=== PATIENT | male | born 1950 | race Caucasian/White ===

== ENCOUNTER → 2016-05-09 | Outpatient (REF) | payer BC ==
[2016-05-09 11:32] LABS: MEAN CORPUSCULAR HEMOGLOBIN 33.1 pg (27.0-33.0); MEAN CORPUSCULAR HGB CONC 35.2 g/dl (32.0-36.5); MEAN CORPUSCULAR VOLUME 93.9 fl (80.0-96.0); RED CELL DISTRIBUTION WIDTH 12.9 % (11.5-14.5); WHITE BLOOD COUNT 7.4 K/mm3 (4.0-10.0)
[2016-05-09 11:39] LABS: ALBUMIN 3.8 GM/DL (3.2-5.2); ALBUMIN/GLOBULIN RATIO 0.93 (1.00-1.93); ALKALINE PHOSPHATASE 72 U/L (45-117); ALT/SGPT 18 U/L (12-78); ANION GAP 6 MEQ/L (8-16); AST/SGOT 13 U/L (15-37); BILIRUBIN,TOTAL 0.4 MG/DL (0.2-1.0); BLOOD UREA NITROGEN 17 MG/DL (7-18); CALCIUM LEVEL 8.7 MG/DL (8.8-10.2); CARBON DIOXIDE LEVEL 32 MEQ/L (21-32); CHLORIDE LEVEL 102 MEQ/L (98-107); CHOLESTEROL LEVEL 120 MG/DL (<200); CREATININE FOR GFR 0.86 MG/DL (0.70-1.30); GLOMERULAR FILTRATION RATE > 60.0 (>49); GLUCOSE, FASTING 97 MG/DL (80-110); POTASSIUM SERUM 3.9 MEQ/L (3.5-5.1); SODIUM LEVEL 140 MEQ/L (136-145); TOTAL PROTEIN 7.9 GM/DL (6.4-8.2); TRIGLYCERIDES LEVEL 65 MG/DL (<150)
== END ==
LOC: M SFHCPLAZ 08:14
PROVIDERS: ATTEND Internal Medicine
DX: G25.81 Restless legs syndrome (principal); I10 Essential (primary) hypertension

== ENCOUNTER 2017-05-14 10:39 | Inpatient (IN) | payer MEDICARE, BC ==
[2017-05-14] MEDS: ASPIRIN 81 MG ENTERIC TAB PO (09:00)
[2017-05-14] MEDS: NS 1,000 ML IV (11:35)
[2017-05-14] MEDS: ACETAMINOPHEN 325 MG TAB PO (11:35)
[2017-05-14] MEDS: IPRATROPIUM 0.5MG/ALBUTEROL 2.5MG INH SOL UD 3ML (DUONEB)(J7620) NEB ×2 (11:36→21:51)
[2017-05-14] MEDS: ALBUTEROL SULFATE 2.5 MG/0.5 ML INH NEB SOLN INH (11:36)
[2017-05-14 11:43] LABS: ABG BASE EXCESS 0.5 (-2.0-2.0); ABG O2 SATURATION 93.8 % (95.0-99.0); ABG PARTIAL PRESSURE CO2 28.1 mmHg (35.0-45.0); ABG PARTIAL PRESSURE O2 67.2 mmHg (75.0-100.0); ABG STANDARD HCO3 24.9 MEQ/L (22.0-26.0); ABG TOTAL CO2 23.8 MEQ/L (23.0-31.0)
[2017-05-14 11:44] LABS: HEMATOCRIT 21.6 % (42.0-52.0); HEMOGLOBIN 7.4 g/dl (14.0-18.0); MEAN CORPUSCULAR HEMOGLOBIN 35.9 pg (27.0-33.0); MEAN CORPUSCULAR HGB CONC 34.3 g/dl (32.0-36.5); MEAN CORPUSCULAR VOLUME 104.9 fl (80.0-96.0); PLATELET COUNT, AUTOMATED 117 10^3/uL (150-450); RED BLOOD COUNT 2.06 10^6/uL (4.30-6.10); RED CELL DISTRIBUTION WIDTH 14.1 % (11.5-14.5); WHITE BLOOD COUNT 5.9 10^3/uL (4.0-10.0)
[2017-05-14 12:04] LABS: ADD MANUAL DIFFER YES; DIFF SLIDE NUMBER 105; POSITIVE MORPH POS FLAG
[2017-05-14 12:08] LABS: LACTIC ACID SEPSIS PROTOCOL 1.2 MMOL/L (0.4-2.0)
[2017-05-14 12:15] LABS: ALBUMIN 3.2 GM/DL (3.2-5.2); ALBUMIN/GLOBULIN RATIO 0.46 (1.00-1.93); ALKALINE PHOSPHATASE 49 U/L (45-117); ALT/SGPT 8 U/L (12-78); ANION GAP 7 MEQ/L (8-16); AST/SGOT 25 U/L (7-37); BILIRUBIN,TOTAL 0.2 MG/DL (0.2-1.0); BLOOD UREA NITROGEN 27 MG/DL (7-18); CALCIUM LEVEL 8.8 MG/DL (8.8-10.2); CARBON DIOXIDE LEVEL 29 MEQ/L (21-32); CHLORIDE LEVEL 100 MEQ/L (98-107); CPK CREATINE PHOSPHOKINASE 107 U/L (39-308); CREATININE FOR GFR 1.09 MG/DL (0.70-1.30); GLOMERULAR FILTRATION RATE > 60.0 (>49); GLUCOSE, FASTING 105 MG/DL (80-110); POTASSIUM SERUM 3.3 MEQ/L (3.5-5.1); SODIUM LEVEL 136 MEQ/L (136-145); TOTAL PROTEIN 10.1 GM/DL (6.4-8.2); TROPONIN I < 0.02 NG/ML (< 0.10)
[2017-05-14 12:20] LABS: BILIRUBIN,DIRECT < 0.1 MG/DL (0.0-0.2); MB/CK RELATIVE INDEX 0.93 (< OR =4)
[2017-05-14 12:38] LABS: ATYPICAL LYMPH 2 % (0-5); BANDS 1 % (< 11); LYMPHOCYTES 17 % (16-52); METAMYELOCYTES 2 % (0-0); MONOCYTES 11 % (0-8); MYELOCYTES 1 % (0-0); NEUTROPHILS 66 % (35-75)
[2017-05-14 12:39] LABS: PLATELET ESTIMATE DECREASED (NORMAL)
[2017-05-14] MEDS ORDERED: ISOVUE-370 76% 100ML VIAL (Q9967) As Ordered (13:03)
[2017-05-14 14:00] LABS: APPEARANCE, URINE HAZY (CLEAR); BACTERIA, URINE AUTO NEGATIVE (NEGATIVE); BILIRUBIN, URINE AUTO NEGATIVE (NEGATIVE); BLOOD, URINE BLOOD 2+ (NEGATIVE); CALCIUM OXALATE CRYSTALS LARGE; COLOR, URINE YELLOW (YELLOW); GLUCOSE, URINE (UA) AUTO NEGATIVE (NEGATIVE); KETONE, URINE AUTO TRACE mg/dL (NEGATIVE); LEUKOCYTE ESTERASE, URINE AUTO NEGATIVE (NEGATIVE); MUCUS, URINE SMALL (NEGATIVE); NITRITE, URINE AUTO NEGATIVE (NEGATIVE); PROTEIN, URINE AUTO 2+ mg/dL (NEGATIVE); RBC, URINE AUTO 64 /HPF (0-3); SQUAMOUS EPITHELIAL CELL UR AU 0 /HPF (0-6); UROBILINOGEN, URINE AUTO 0.2 mg/dL (0.0-2.0); WBC, URINE AUTO 8 /HPF (0-3)
[2017-05-14] MEDS: CEFTRIAXONE SOD 1 GM in APPROPRIATE DILUENT 1 EA IV (14:38)
[2017-05-14] MEDS: POTASSIUM CHLORIDE 10 MEQ SR TABLET PO (14:51)
[2017-05-14] MEDS ORDERED: IPRATROPIUM 0.5MG/ALBUTEROL 2.5MG INH SOL UD 3ML (DUONEB)(J7620) NEB (15:30)
[2017-05-14 15:38] LABS: RETIC HEMOGLOBIN EQUIVALENT 38.3 pg (24-36); RETICULOCYTE # 24.2 10^9/L (17-77); RETICULOCYTE % 1.2 % (0.5-1.5)
[2017-05-14 15:40] LABS: REASON FOR REVIEW COMPREHENSIVE REVIEW; SLIDE REVIEW Report; SOURCE PERIPHERAL SMEAR
[2017-05-14] MEDS: AZITHROMYCIN INJ 500 MG, VIAL MATE ADAPTER 1 EACH in D5W 250 ML IV (15:49)
[2017-05-14 15:56] LABS: MAGNESIUM LEVEL 1.8 MG/DL (1.8-2.4)
[2017-05-14 16:10] LABS: ERYTHROCYTE SEDIMENTATION RATE 126 mm/hr (0-20)
[2017-05-14 16:12] LABS: C REACTIVE PROTEIN QUANTITATIV 0.84 MG/DL (0.00-0.30)
[2017-05-14] MEDS: PERCOCET 5MG/325MG TAB PO ×2 (16:15→23:00)
[2017-05-14 16:16] LABS: PSA SCREENING 0.57 NG/ML (< 4.0); TOTAL PROTEIN 9.6 GM/DL (6.4-8.2)
[2017-05-14 16:17] LABS: FERRITIN 673 NG/ML (26-388); IRON (FE) 34 UG/DL (65-175); PERCENT SATURATION 12.2 % (19.7-50.0); TOTAL IRON BINDING CAPACITY 279 UG/DL (250-450)
[2017-05-14] MEDS: KCL 20MEQ in NS 1000ML 1,000 ML IV (17:07)
[2017-05-14] MEDS: LACTOBACILLUS ACIDOPHILUS CAP (BACID) PO ×2 (17:07→23:00)
[2017-05-14] MEDS: SINEMET 25-100 MG TAB PO ×2 (17:07→23:03)
[2017-05-14] MEDS: ROPINIROLE 6 MG PO (21:00)
[2017-05-14 21:35] LABS: AMMONIA 32 uMOL/L (<32)
[2017-05-14 21:40] LABS: CPK CREATINE PHOSPHOKINASE 145 U/L (39-308); MB/CK RELATIVE INDEX 0.68 (< OR =4); TROPONIN I 0.02 NG/ML (< 0.10)
[2017-05-14 22:43] LABS: IMMEDIATE SPIN CROSSMATCH 1 2
[2017-05-14] MEDS: traZODone 50 MG TAB PO (22:58)
[2017-05-14] MEDS: PANTOPRAZOLE 40MG INJ (PROTONIX) (C9113) IV (22:58)
[2017-05-14] MEDS: SENOKOT S TAB PO (22:59)
[2017-05-14] MEDS: guaiFENesin ER 600 MG TAB PO (22:59)
[2017-05-14] MEDS: MIRALAX *UNIT DOSE* 17GM PACKET PO (23:00)
[2017-05-14] MEDS: SINEMET**CR** 25/100 TABCR PO (23:01)
[2017-05-14] MEDS: BENZONATATE 100 MG CAP PO (23:01)
[2017-05-14] MEDS: SELEGILINE 5 MG PO (23:04)
[2017-05-14] MEDS: ACETAMINOPHEN TAB 650MG DOSE (2X325MG) PO (23:55)
[2017-05-15 01:08] LABS: HEMATOCRIT 21.6 % (42.0-52.0); HEMOGLOBIN 7.3 g/dl (14.0-18.0)
[2017-05-15] MEDS: IPRATROPIUM 0.5MG/ALBUTEROL 2.5MG INH SOL UD 3ML (DUONEB)(J7620) NEB ×4 (02:00→20:00)
[2017-05-15] MEDS: KCL 20MEQ in NS 1000ML 1,000 ML IV ×3 (02:50→23:15)
[2017-05-15 03:16] LABS: IMMEDIATE SPIN CROSSMATCH 1 1
[2017-05-15] MEDS: PERCOCET 5MG/325MG TAB PO ×3 (04:01→16:16)
[2017-05-15 07:54] LABS: HEMATOCRIT 25.3 % (42.0-52.0); HEMOGLOBIN 8.5 g/dl (14.0-18.0); MEAN CORPUSCULAR HGB CONC 33.6 g/dl (32.0-36.5); MEAN CORPUSCULAR VOLUME 101.2 fl (80.0-96.0); PLATELET COUNT, AUTOMATED 101 10^3/uL (150-450); RED CELL DISTRIBUTION WIDTH 17.2 % (11.5-14.5); WHITE BLOOD COUNT 4.3 10^3/uL (4.0-10.0)
[2017-05-15] MEDS: PANTOPRAZOLE 40MG INJ (PROTONIX) (C9113) IV ×2 (08:00→22:45)
[2017-05-15] MEDS: MIRALAX *UNIT DOSE* 17GM PACKET PO ×2 (08:00→22:45)
[2017-05-15] MEDS: LACTOBACILLUS ACIDOPHILUS CAP (BACID) PO ×3 (08:00→22:44)
[2017-05-15] MEDS: guaiFENesin ER 600 MG TAB PO ×2 (08:01→22:44)
[2017-05-15] MEDS: SENOKOT S TAB PO ×2 (08:01→22:45)
[2017-05-15] MEDS: BENZONATATE 100 MG CAP PO ×5 (08:01→23:15)
[2017-05-15] MEDS: SINEMET 25-100 MG TAB PO ×4 (08:01→22:45)
[2017-05-15] MEDS: ASPIRIN 81 MG ENTERIC TAB PO (08:01)
[2017-05-15] MEDS: ACETAMINOPHEN TAB 650MG DOSE (2X325MG) PO ×2 (08:09→21:26)
[2017-05-15 08:21] LABS: ALBUMIN 2.9 GM/DL (3.2-5.2); ALBUMIN/GLOBULIN RATIO 0.45 (1.00-1.93); ALKALINE PHOSPHATASE 58 U/L (45-117); ALT/SGPT 18 U/L (12-78); ANION GAP 6 MEQ/L (8-16); AST/SGOT 77 U/L (7-37); BILIRUBIN,TOTAL 0.4 MG/DL (0.2-1.0); BLOOD UREA NITROGEN 29 MG/DL (7-18); CALCIUM LEVEL 8.4 MG/DL (8.8-10.2); CARBON DIOXIDE LEVEL 27 MEQ/L (21-32); CHLORIDE LEVEL 104 MEQ/L (98-107); CREATININE FOR GFR 0.93 MG/DL (0.70-1.30); GLOMERULAR FILTRATION RATE > 60.0 (>49); GLUCOSE, FASTING 89 MG/DL (80-110); POTASSIUM SERUM 3.8 MEQ/L (3.5-5.1); SODIUM LEVEL 137 MEQ/L (136-145); TOTAL PROTEIN 9.3 GM/DL (6.4-8.2)
[2017-05-15] MEDS: OSELTAMIVIR PHOSPHATE 75 MG CAP (TAMIFLU) PO ×2 (10:41→22:44)
[2017-05-15 11:22] LABS: ALBUMIN 3.68 GM/DL (3.29-5.55); ALBUMIN % 38.3 % (55.8-66.1); ALPHA-1-GLOBULIN % 4.2 % (2.9-4.9); ALPHA-2-GLOBULINS 0.57 GM/DL (0.42-0.99); ALPHA-2-GLOBULINS % 5.9 % (7.1-11.8); BETA-1-GLOBULINS 0.26 GM/DL (0.28-0.60); BETA-1-GLOBULINS % 2.7 % (4.7-7.2); BETA-2-GLOBULINS 0.36 GM/DL (0.19-0.55); BETA-2-GLOBULINS % 3.8 % (3.2-6.5); GAMMA GLOBULIN % 45.1 % (11.1-18.8); GAMMA GLOBULINS 4.33 GM/DL (0.65-1.58)
[2017-05-15 11:27] LABS: IMMUNOTYPING SERUM IGG ABNORMAL (NORMAL)
[2017-05-15 11:28] LABS: IMMUNOTYPING SERUM LAMBDA ABNORMAL (NORMAL)
[2017-05-15 11:45] LABS: VITAMIN B12 LEVEL 191 PG/ML (247-911)
[2017-05-15 11:47] LABS: FOLATE 15.2 NG/ML (>5.4)
[2017-05-15 15:17] LABS: HEMATOCRIT 25.2 % (42.0-52.0); HEMOGLOBIN 8.6 g/dl (14.0-18.0)
[2017-05-15 15:52] LABS: FERRITIN 1297 NG/ML (26-388); IRON (FE) 39 UG/DL (65-175); PERCENT SATURATION 15.9 % (19.7-50.0); TOTAL IRON BINDING CAPACITY 245 UG/DL (250-450)
[2017-05-15 15:56] LABS: VITAMIN B12 LEVEL 195 PG/ML (247-911)
[2017-05-15] MEDS: CEFTRIAXONE SOD 2 GM in APPROPRIATE DILUENT 1 EA IV (16:13)
[2017-05-15] MEDS: CHLORASEPTIC SPRAY MT (16:17)
[2017-05-15] MEDS: AZITHROMYCIN INJ 500 MG, VIAL MATE ADAPTER 1 EACH in D5W 250 ML IV (17:45)
[2017-05-15] MEDS: BACTRIM 160MG/800MG DS TAB PO (18:44)
[2017-05-15] MEDS: ACYCLOVIR 200 MG CAPSULE PO ×2 (18:44→23:15)
[2017-05-15] MEDS: LORazepam 2 MG/ML VIAL (J2060) IV ×3 (18:58→20:59)
[2017-05-15] MEDS ORDERED: dexameTHASONE 4 MG/ML 1ML VIAL (J1100) As Ordered (22:26)
[2017-05-15] MEDS: ROPINIROLE 6 MG PO (22:43)
[2017-05-15] MEDS: traZODone 50 MG TAB PO (22:44)
[2017-05-15] MEDS: SINEMET**CR** 25/100 TABCR PO ×2 (22:44→22:50)
[2017-05-15] MEDS: ZOLEDRONIC ACID 4 MG in D5W 100 ML IV (22:45)
[2017-05-15] MEDS: SELEGILINE 5 MG PO (22:50)
[2017-05-16] MEDS ORDERED: FLUMAZENIL 0.5 MG/5 ML VIAL IV (00:33)
[2017-05-16] MEDS: IPRATROPIUM 0.5MG/ALBUTEROL 2.5MG INH SOL UD 3ML (DUONEB)(J7620) NEB ×4 (00:40→20:38)
[2017-05-16] MEDS ORDERED: SLF 3 ML SYR IV (04:15)
[2017-05-16] MEDS ORDERED: IPRATROPIUM 0.5MG/ALBUTEROL 2.5MG INH SOL UD 3ML (DUONEB)(J7620) NEB (05:45)
[2017-05-16 06:15] LABS: ABG BASE EXCESS 1.2 (-2.0-2.0); ABG HCO3 23.3 MEQ/L (22.0-26.0); ABG O2 SATURATION 97.2 % (95.0-99.0); ABG PARTIAL PRESSURE CO2 28.1 mmHg (35.0-45.0); ABG STANDARD HCO3 25.6 MEQ/L (22.0-26.0); ABG TOTAL CO2 24.2 MEQ/L (23.0-31.0); ABG pH (ARTERIAL) 7.537 UNITS (7.350-7.450)
[2017-05-16 06:40] LABS: HEMATOCRIT 24.7 % (42.0-52.0); HEMOGLOBIN 8.5 g/dl (14.0-18.0); MEAN CORPUSCULAR HEMOGLOBIN 34.1 pg (27.0-33.0); MEAN CORPUSCULAR HGB CONC 34.4 g/dl (32.0-36.5); MEAN CORPUSCULAR VOLUME 99.2 fl (80.0-96.0); RED BLOOD COUNT 2.49 10^6/uL (4.30-6.10); WHITE BLOOD COUNT 4.4 10^3/uL (4.0-10.0)
[2017-05-16 06:44] LABS: PLATELET COUNT, AUTOMATED 90 10^3/uL (150-450)
[2017-05-16 06:45] LABS: IMMATURE PLATELET FRACTION % 3.1 % (0.0-10.9)
[2017-05-16] MEDS: SINEMET 25-100 MG TAB PO ×4 (06:55→20:59)
[2017-05-16] MEDS: ACYCLOVIR 200 MG CAPSULE PO ×3 (06:55→20:58)
[2017-05-16] MEDS: SLF 3 ML SYR IV ×3 (06:56→21:14)
[2017-05-16 07:01] LABS: ALBUMIN 2.5 GM/DL (3.2-5.2); ALBUMIN/GLOBULIN RATIO 0.42 (1.00-1.93); ALKALINE PHOSPHATASE 50 U/L (45-117); ALT/SGPT 15 U/L (12-78); ANION GAP 5 MEQ/L (8-16); AST/SGOT 67 U/L (7-37); BILIRUBIN,TOTAL 0.2 MG/DL (0.2-1.0); BLOOD UREA NITROGEN 31 MG/DL (7-18); CARBON DIOXIDE LEVEL 27 MEQ/L (21-32); CHLORIDE LEVEL 105 MEQ/L (98-107); CREATININE FOR GFR 0.72 MG/DL (0.70-1.30); GLOMERULAR FILTRATION RATE > 60.0 (>49); GLUCOSE, FASTING 136 MG/DL (70-100); MAGNESIUM LEVEL 1.9 MG/DL (1.8-2.4); POTASSIUM SERUM 3.6 MEQ/L (3.5-5.1); SODIUM LEVEL 137 MEQ/L (136-145); TOTAL PROTEIN 8.5 GM/DL (6.4-8.2)
[2017-05-16] MEDS ORDERED: VANCOMYCIN HCL 750 MG, VIAL MATE ADAPTER 1 EACH in D5W 250 ML IV (08:30)
[2017-05-16 08:57] LABS: CARCINOEMBRYONIC ANTIGEN < 0.5 NG/ML (<2.5)
[2017-05-16] MEDS: SENOKOT S TAB PO ×3 (09:00→21:00)
[2017-05-16] MEDS: MIRALAX *UNIT DOSE* 17GM PACKET PO ×2 (09:42→21:00)
[2017-05-16] MEDS: BENZONATATE 100 MG CAP PO ×3 (09:42→20:59)
[2017-05-16] MEDS: PANTOPRAZOLE 40MG INJ (PROTONIX) (C9113) IV ×2 (09:42→20:58)
[2017-05-16] MEDS: LACTOBACILLUS ACIDOPHILUS CAP (BACID) PO ×3 (09:42→20:58)
[2017-05-16] MEDS: guaiFENesin ER 600 MG TAB PO ×2 (09:42→20:59)
[2017-05-16] MEDS: ASPIRIN 81 MG ENTERIC TAB PO (09:42)
[2017-05-16] MEDS: VANCOMYCIN HCL 1,000 MG, VIAL MATE ADAPTER 1 EACH in D5W 250 ML IV ×2 (09:42→11:02)
[2017-05-16] MEDS: OSELTAMIVIR PHOSPHATE 75 MG CAP (TAMIFLU) PO ×2 (09:42→20:59)
[2017-05-16] MEDS: CYANOCOBALAMIN 500 MCG TAB PO (09:43)
[2017-05-16] MEDS: FERROUS GLUCONATE 324 MG TAB PO (12:20)
[2017-05-16] MEDS: CEFTRIAXONE SOD 2 GM in APPROPRIATE DILUENT 1 EA IV (14:30)
[2017-05-16] MEDS: AZITHROMYCIN INJ 500 MG, VIAL MATE ADAPTER 1 EACH in D5W 250 ML IV (17:07)
[2017-05-16] MEDS: traZODone 50 MG TAB PO (20:59)
[2017-05-16] MEDS: ROPINIROLE 6 MG PO (21:10)
[2017-05-16] MEDS: SELEGILINE 5 MG PO (21:14)
[2017-05-16] MEDS: SINEMET**CR** 25/100 TABCR PO (21:19)
[2017-05-17] MEDS: IPRATROPIUM 0.5MG/ALBUTEROL 2.5MG INH SOL UD 3ML (DUONEB)(J7620) NEB ×4 (00:45→20:00)
[2017-05-17] MEDS: SLF 3 ML SYR IV ×3 (04:43→21:56)
[2017-05-17] MEDS: ACETAMINOPHEN TAB 650MG DOSE (2X325MG) PO (04:44)
[2017-05-17] MEDS: SINEMET 25-100 MG TAB PO ×4 (06:44→21:55)
[2017-05-17 07:06] LABS: HEMATOCRIT 24.6 % (42.0-52.0); HEMOGLOBIN 8.5 g/dl (14.0-18.0); MEAN CORPUSCULAR HGB CONC 34.6 g/dl (32.0-36.5); MEAN CORPUSCULAR VOLUME 98.4 fl (80.0-96.0); RED CELL DISTRIBUTION WIDTH 15.2 % (11.5-14.5); WHITE BLOOD COUNT 4.4 10^3/uL (4.0-10.0)
[2017-05-17 07:11] LABS: PLATELET COUNT, AUTOMATED 91 10^3/uL (150-450)
[2017-05-17 07:12] LABS: IMMATURE PLATELET FRACTION % 3.2 % (0.0-10.9)
[2017-05-17 07:25] LABS: ALBUMIN 2.5 GM/DL (3.2-5.2); ALBUMIN/GLOBULIN RATIO 0.42 (1.00-1.93); ALKALINE PHOSPHATASE 49 U/L (45-117); ALT/SGPT 33 U/L (12-78); ANION GAP 7 MEQ/L (8-16); AST/SGOT 42 U/L (7-37); BILIRUBIN,TOTAL 0.2 MG/DL (0.2-1.0); BLOOD UREA NITROGEN 30 MG/DL (7-18); CALCIUM LEVEL 7.7 MG/DL (8.8-10.2); CARBON DIOXIDE LEVEL 26 MEQ/L (21-32); CHLORIDE LEVEL 103 MEQ/L (98-107); CREATININE FOR GFR 0.75 MG/DL (0.70-1.30); GLOMERULAR FILTRATION RATE > 60.0 (>49); GLUCOSE, FASTING 116 MG/DL (70-100); MAGNESIUM LEVEL 2.1 MG/DL (1.8-2.4); POTASSIUM SERUM 3.4 MEQ/L (3.5-5.1); SODIUM LEVEL 136 MEQ/L (136-145); TOTAL PROTEIN 8.4 GM/DL (6.4-8.2)
[2017-05-17] MEDS ORDERED: CALCIUM GLUCONATE 1,000 MG in D5W MINI-BAG PLUS 100 ML IV (08:00)
[2017-05-17] MEDS: MIRALAX *UNIT DOSE* 17GM PACKET PO ×2 (09:00→21:54)
[2017-05-17] MEDS: SENOKOT S TAB PO ×2 (09:00→21:55)
[2017-05-17] MEDS: BACTRIM 160MG/800MG DS TAB PO (09:24)
[2017-05-17] MEDS: guaiFENesin ER 600 MG TAB PO ×2 (09:24→21:55)
[2017-05-17] MEDS: ACYCLOVIR 200 MG CAPSULE PO ×2 (09:25→21:54)
[2017-05-17] MEDS: LACTOBACILLUS ACIDOPHILUS CAP (BACID) PO ×3 (09:25→21:55)
[2017-05-17] MEDS: CYANOCOBALAMIN 500 MCG TAB PO (09:25)
[2017-05-17] MEDS: FERROUS GLUCONATE 324 MG TAB PO (09:25)
[2017-05-17] MEDS: POTASSIUM CHLORIDE 10 MEQ SR TABLET PO (09:25)
[2017-05-17] MEDS: OSELTAMIVIR PHOSPHATE 75 MG CAP (TAMIFLU) PO ×2 (09:25→21:55)
[2017-05-17] MEDS: AZITHROMYCIN 250 MG TAB PO (09:25)
[2017-05-17] MEDS: ASPIRIN 81 MG ENTERIC TAB PO (09:26)
[2017-05-17] MEDS: PANTOPRAZOLE 40MG INJ (PROTONIX) (C9113) IV (09:26)
[2017-05-17] MEDS: BENZONATATE 100 MG CAP PO ×3 (09:28→21:55)
[2017-05-17] MEDS: PERCOCET 5MG/325MG TAB PO (12:44)
[2017-05-17] MEDS: CEFTRIAXONE SOD 2 GM in APPROPRIATE DILUENT 1 EA IV (14:50)
[2017-05-17] MEDS: traZODone 50 MG TAB PO (21:55)
[2017-05-17] MEDS: SINEMET**CR** 25/100 TABCR PO (21:55)
[2017-05-17] MEDS: SELEGILINE 5 MG PO (21:57)
[2017-05-17] MEDS: ROPINIROLE 6 MG PO (21:57)
[2017-05-18 00:06] LABS: BETA 2 MICROGLOBULIN 4.9 mg/L (0.6-2.4)
[2017-05-18 00:06] LABS: FREE KAPPA LIGHT CHAINS SERUM 4.1 mg/L (3.3-19.4); FREE LAMBDA LIGHT CHAINS SERUM 506.1 mg/L (5.7-26.3); KAPPA/LAMBDA RATIO SERUM 0.01 (0.26-1.65); KAPPA/LAMBDA RATIO URINE 0.12 (2.04-10.37)
[2017-05-18] MEDS: IPRATROPIUM 0.5MG/ALBUTEROL 2.5MG INH SOL UD 3ML (DUONEB)(J7620) NEB ×4 (01:12→20:00)
[2017-05-18] MEDS: SINEMET 25-100 MG TAB PO ×4 (06:25→20:19)
[2017-05-18] MEDS: SLF 3 ML SYR IV ×3 (06:25→22:00)
[2017-05-18 07:15] LABS: HEMATOCRIT 24.8 % (42.0-52.0); HEMOGLOBIN 8.5 g/dl (14.0-18.0); MEAN CORPUSCULAR HEMOGLOBIN 34.3 pg (27.0-33.0); MEAN CORPUSCULAR HGB CONC 34.3 g/dl (32.0-36.5); PLATELET COUNT, AUTOMATED 106 10^3/uL (150-450); RED BLOOD COUNT 2.48 10^6/uL (4.30-6.10); WHITE BLOOD COUNT 4.4 10^3/uL (4.0-10.0)
[2017-05-18 07:38] LABS: ALBUMIN 2.5 GM/DL (3.2-5.2); ALBUMIN/GLOBULIN RATIO 0.41 (1.00-1.93); ALKALINE PHOSPHATASE 52 U/L (45-117); ALT/SGPT 33 U/L (12-78); ANION GAP 7 MEQ/L (8-16); AST/SGOT 30 U/L (7-37); BILIRUBIN,TOTAL 0.5 MG/DL (0.2-1.0); BLOOD UREA NITROGEN 23 MG/DL (7-18); CALCIUM LEVEL 7.6 MG/DL (8.8-10.2); CARBON DIOXIDE LEVEL 25 MEQ/L (21-32); CHLORIDE LEVEL 102 MEQ/L (98-107); CREATININE FOR GFR 0.72 MG/DL (0.70-1.30); GLOMERULAR FILTRATION RATE > 60.0 (>49); GLUCOSE, FASTING 90 MG/DL (70-100); MAGNESIUM LEVEL 2.1 MG/DL (1.8-2.4); POTASSIUM SERUM 3.6 MEQ/L (3.5-5.1); SODIUM LEVEL 134 MEQ/L (136-145); TOTAL PROTEIN 8.6 GM/DL (6.4-8.2)
[2017-05-18] MEDS: ASPIRIN 81 MG ENTERIC TAB PO (09:00)
[2017-05-18] MEDS: LACTOBACILLUS ACIDOPHILUS CAP (BACID) PO ×3 (09:41→20:16)
[2017-05-18] MEDS: PANTOPRAZOLE 40MG TAB (PROTONIX) PO (09:42)
[2017-05-18] MEDS: MIRALAX *UNIT DOSE* 17GM PACKET PO ×2 (09:42→20:36)
[2017-05-18] MEDS: SENOKOT S TAB PO ×2 (09:42→20:36)
[2017-05-18] MEDS: OSELTAMIVIR PHOSPHATE 75 MG CAP (TAMIFLU) PO ×2 (09:42→20:19)
[2017-05-18] MEDS: FERROUS GLUCONATE 324 MG TAB PO (09:42)
[2017-05-18] MEDS: guaiFENesin ER 600 MG TAB PO ×2 (09:42→20:16)
[2017-05-18] MEDS: CYANOCOBALAMIN 500 MCG TAB PO (09:43)
[2017-05-18] MEDS: ACYCLOVIR 200 MG CAPSULE PO ×2 (09:43→20:17)
[2017-05-18] MEDS: AZITHROMYCIN 250 MG TAB PO (09:43)
[2017-05-18] MEDS: BENZONATATE 100 MG CAP PO ×3 (09:43→20:18)
[2017-05-18 12:36] LABS: FLOW CYTOMETRY FOR SEND OUT See Pathology Report
[2017-05-18] MEDS: CEFTRIAXONE SOD 2 GM in APPROPRIATE DILUENT 1 EA IV (14:27)
[2017-05-18] MEDS: PERCOCET 5MG/325MG TAB PO ×3 (15:18→20:36)
[2017-05-18] MEDS: ROPINIROLE 6 MG PO (20:15)
[2017-05-18] MEDS: traZODone 50 MG TAB PO (20:18)
[2017-05-18] MEDS: SINEMET**CR** 25/100 TABCR PO (20:19)
[2017-05-18] MEDS: SELEGILINE 5 MG PO (20:37)
[2017-05-19] MEDS: IPRATROPIUM 0.5MG/ALBUTEROL 2.5MG INH SOL UD 3ML (DUONEB)(J7620) NEB ×4 (02:00→20:00)
[2017-05-19] MEDS: PERCOCET 5MG/325MG TAB PO ×4 (03:58→21:36)
[2017-05-19] MEDS: SLF 3 ML SYR IV ×3 (06:00→21:34)
[2017-05-19 06:51] LABS: HEMATOCRIT 25.6 % (42.0-52.0); HEMOGLOBIN 8.7 g/dl (14.0-18.0); MEAN CORPUSCULAR HEMOGLOBIN 34.3 pg (27.0-33.0); MEAN CORPUSCULAR VOLUME 100.8 fl (80.0-96.0); PLATELET COUNT, AUTOMATED 118 10^3/uL (150-450); RED BLOOD COUNT 2.54 10^6/uL (4.30-6.10); RED CELL DISTRIBUTION WIDTH 14.8 % (11.5-14.5); WHITE BLOOD COUNT 4.1 10^3/uL (4.0-10.0)
[2017-05-19 07:05] LABS: ALBUMIN 2.5 GM/DL (3.2-5.2); ALBUMIN/GLOBULIN RATIO 0.42 (1.00-1.93); ALKALINE PHOSPHATASE 52 U/L (45-117); ALT/SGPT 17 U/L (12-78); ANION GAP 6 MEQ/L (8-16); AST/SGOT 24 U/L (7-37); BILIRUBIN,TOTAL 0.4 MG/DL (0.2-1.0); BLOOD UREA NITROGEN 18 MG/DL (7-18); CALCIUM LEVEL 7.3 MG/DL (8.8-10.2); CARBON DIOXIDE LEVEL 26 MEQ/L (21-32); CHLORIDE LEVEL 103 MEQ/L (98-107); GLOMERULAR FILTRATION RATE > 60.0 (>49); GLUCOSE, FASTING 84 MG/DL (70-100); MAGNESIUM LEVEL 2.4 MG/DL (1.8-2.4); POTASSIUM SERUM 3.7 MEQ/L (3.5-5.1); SODIUM LEVEL 135 MEQ/L (136-145); TOTAL PROTEIN 8.5 GM/DL (6.4-8.2)
[2017-05-19] MEDS: BACTRIM 160MG/800MG DS TAB PO (08:17)
[2017-05-19] MEDS: LACTOBACILLUS ACIDOPHILUS CAP (BACID) PO ×3 (08:17→21:36)
[2017-05-19] MEDS: guaiFENesin ER 600 MG TAB PO ×2 (08:17→21:35)
[2017-05-19] MEDS: ACYCLOVIR 200 MG CAPSULE PO ×2 (08:17→21:34)
[2017-05-19] MEDS: CYANOCOBALAMIN 500 MCG TAB PO (08:18)
[2017-05-19] MEDS: BENZONATATE 100 MG CAP PO ×3 (08:18→21:35)
[2017-05-19] MEDS: SENOKOT S TAB PO ×2 (08:18→21:36)
[2017-05-19] MEDS: ASPIRIN 81 MG ENTERIC TAB PO (08:19)
[2017-05-19] MEDS: SINEMET 25-100 MG TAB PO ×4 (08:19→21:36)
[2017-05-19] MEDS: PANTOPRAZOLE 40MG TAB (PROTONIX) PO (08:19)
[2017-05-19] MEDS: MIRALAX *UNIT DOSE* 17GM PACKET PO ×2 (08:19→21:00)
[2017-05-19] MEDS: OSELTAMIVIR PHOSPHATE 75 MG CAP (TAMIFLU) PO ×2 (08:19→21:35)
[2017-05-19] MEDS: FERROUS GLUCONATE 324 MG TAB PO (08:19)
[2017-05-19] MEDS: CEFDINIR 300 MG CAP (OMNICEF) PO ×2 (11:35→21:34)
[2017-05-19] MEDS: SINEMET**CR** 25/100 TABCR PO (21:35)
[2017-05-19] MEDS: traZODone 50 MG TAB PO (21:36)
[2017-05-19] MEDS: ROPINIROLE 6 MG PO (21:37)
[2017-05-19] MEDS: SELEGILINE 5 MG PO (21:39)
[2017-05-20 00:10] LABS: BODY FLUID CULTURE Not Indicated (.); LEGIONELLA ANTIGEN URINE Negative (Negative); ORGANISM ID Not indicated. (.); SPECIMEN SOURCE Urine (.); URINE STREP PNEUMONIAE ANTIGEN Negative (Negative)
[2017-05-20] MEDS: IPRATROPIUM 0.5MG/ALBUTEROL 2.5MG INH SOL UD 3ML (DUONEB)(J7620) NEB ×4 (00:53→20:00)
[2017-05-20 05:57] LABS: HEMATOCRIT 29.1 % (42.0-52.0); HEMOGLOBIN 9.8 g/dl (14.0-18.0); MEAN CORPUSCULAR HEMOGLOBIN 33.4 pg (27.0-33.0); MEAN CORPUSCULAR HGB CONC 33.7 g/dl (32.0-36.5); MEAN CORPUSCULAR VOLUME 99.3 fl (80.0-96.0); PLATELET COUNT, AUTOMATED 158 10^3/uL (150-450); RED BLOOD COUNT 2.93 10^6/uL (4.30-6.10); RED CELL DISTRIBUTION WIDTH 14.7 % (11.5-14.5); WHITE BLOOD COUNT 4.5 10^3/uL (4.0-10.0)
[2017-05-20] MEDS: SINEMET 25-100 MG TAB PO ×4 (06:13→20:20)
[2017-05-20] MEDS: SLF 3 ML SYR IV ×3 (06:13→20:26)
[2017-05-20 06:22] LABS: ALBUMIN 2.7 GM/DL (3.2-5.2); ALBUMIN/GLOBULIN RATIO 0.42 (1.00-1.93); ALKALINE PHOSPHATASE 56 U/L (45-117); ALT/SGPT 16 U/L (12-78); ANION GAP 6 MEQ/L (8-16); AST/SGOT 23 U/L (7-37); BILIRUBIN,TOTAL 0.5 MG/DL (0.2-1.0); BLOOD UREA NITROGEN 15 MG/DL (7-18); CALCIUM LEVEL 7.8 MG/DL (8.8-10.2); CARBON DIOXIDE LEVEL 25 MEQ/L (21-32); CHLORIDE LEVEL 104 MEQ/L (98-107); CREATININE FOR GFR 0.76 MG/DL (0.70-1.30); GLOMERULAR FILTRATION RATE > 60.0 (>49); GLUCOSE, FASTING 87 MG/DL (70-100); MAGNESIUM LEVEL 2.6 MG/DL (1.8-2.4); SODIUM LEVEL 135 MEQ/L (136-145); TOTAL PROTEIN 9.2 GM/DL (6.4-8.2)
[2017-05-20] MEDS: CEFDINIR 300 MG CAP (OMNICEF) PO ×2 (09:16→20:22)
[2017-05-20] MEDS: CYANOCOBALAMIN 500 MCG TAB PO (09:16)
[2017-05-20] MEDS: ACYCLOVIR 200 MG CAPSULE PO ×2 (09:16→20:22)
[2017-05-20] MEDS: LACTOBACILLUS ACIDOPHILUS CAP (BACID) PO ×3 (09:16→20:23)
[2017-05-20] MEDS: SENOKOT S TAB PO ×2 (09:16→20:20)
[2017-05-20] MEDS: MIRALAX *UNIT DOSE* 17GM PACKET PO ×2 (09:17→20:18)
[2017-05-20] MEDS: FERROUS GLUCONATE 324 MG TAB PO (09:17)
[2017-05-20] MEDS: ASPIRIN 81 MG ENTERIC TAB PO (09:17)
[2017-05-20] MEDS: PANTOPRAZOLE 40MG TAB (PROTONIX) PO (09:17)
[2017-05-20] MEDS: guaiFENesin ER 600 MG TAB PO ×2 (09:17→20:22)
[2017-05-20] MEDS: OSELTAMIVIR PHOSPHATE 75 MG CAP (TAMIFLU) PO ×2 (09:17→20:22)
[2017-05-20] MEDS: BENZONATATE 100 MG CAP PO ×3 (09:17→20:22)
[2017-05-20] MEDS: PERCOCET 5MG/325MG TAB PO ×3 (09:18→20:21)
[2017-05-20] MEDS: SINEMET**CR** 25/100 TABCR PO (20:22)
[2017-05-20] MEDS: traZODone 50 MG TAB PO (20:23)
[2017-05-20] MEDS: ROPINIROLE 6 MG PO ×2 (20:25→20:36)
[2017-05-20] MEDS: SELEGILINE 5 MG PO (20:26)
[2017-05-21] MEDS: IPRATROPIUM 0.5MG/ALBUTEROL 2.5MG INH SOL UD 3ML (DUONEB)(J7620) NEB ×3 (01:24→13:33)
[2017-05-21 06:13] LABS: HEMATOCRIT 29.9 % (42.0-52.0); HEMOGLOBIN 10.4 g/dl (14.0-18.0); MEAN CORPUSCULAR HEMOGLOBIN 33.9 pg (27.0-33.0); MEAN CORPUSCULAR HGB CONC 34.8 g/dl (32.0-36.5); MEAN CORPUSCULAR VOLUME 97.4 fl (80.0-96.0); PLATELET COUNT, AUTOMATED 206 10^3/uL (150-450); RED BLOOD COUNT 3.07 10^6/uL (4.30-6.10); RED CELL DISTRIBUTION WIDTH 14.8 % (11.5-14.5); WHITE BLOOD COUNT 4.9 10^3/uL (4.0-10.0)
[2017-05-21 06:42] LABS: ALBUMIN/GLOBULIN RATIO 0.44 (1.00-1.93); ALKALINE PHOSPHATASE 58 U/L (45-117); ALT/SGPT 19 U/L (12-78); ANION GAP 5 MEQ/L (8-16); AST/SGOT 33 U/L (7-37); BILIRUBIN,TOTAL 0.6 MG/DL (0.2-1.0); BLOOD UREA NITROGEN 17 MG/DL (7-18); CALCIUM LEVEL 7.7 MG/DL (8.8-10.2); CARBON DIOXIDE LEVEL 26 MEQ/L (21-32); CHLORIDE LEVEL 105 MEQ/L (98-107); CREATININE FOR GFR 0.79 MG/DL (0.70-1.30); GLOMERULAR FILTRATION RATE > 60.0 (>49); GLUCOSE, FASTING 94 MG/DL (70-100); MAGNESIUM LEVEL 2.6 MG/DL (1.8-2.4); POTASSIUM SERUM 4.2 MEQ/L (3.5-5.1); SODIUM LEVEL 136 MEQ/L (136-145); TOTAL PROTEIN 9.8 GM/DL (6.4-8.2)
[2017-05-21] MEDS: SINEMET 25-100 MG TAB PO ×2 (07:03→12:29)
[2017-05-21] MEDS: SLF 3 ML SYR IV ×2 (07:03→13:55)
[2017-05-21] MEDS: LACTOBACILLUS ACIDOPHILUS CAP (BACID) PO (08:54)
[2017-05-21] MEDS: SENOKOT S TAB PO (08:54)
[2017-05-21] MEDS: CEFDINIR 300 MG CAP (OMNICEF) PO (08:54)
[2017-05-21] MEDS: ACYCLOVIR 200 MG CAPSULE PO (08:54)
[2017-05-21] MEDS: ASPIRIN 81 MG ENTERIC TAB PO (08:55)
[2017-05-21] MEDS: guaiFENesin ER 600 MG TAB PO (08:55)
[2017-05-21] MEDS: CYANOCOBALAMIN 500 MCG TAB PO (08:55)
[2017-05-21] MEDS: BENZONATATE 100 MG CAP PO (08:55)
[2017-05-21] MEDS: OSELTAMIVIR PHOSPHATE 75 MG CAP (TAMIFLU) PO (08:55)
[2017-05-21] MEDS: PANTOPRAZOLE 40MG TAB (PROTONIX) PO (08:55)
[2017-05-21] MEDS: FERROUS GLUCONATE 324 MG TAB PO (08:55)
[2017-05-21] MEDS: MIRALAX *UNIT DOSE* 17GM PACKET PO (08:56)
[2017-05-21] MEDS: PERCOCET 5MG/325MG TAB PO (08:57)
== END 2017-05-21 15:32 | disposition home health service (06) | DRG 840 ==
LOC: M MSPAV 05-18 12:57 → M ED INP 05-15 13:00 → M PCU 05-15 13:07 → M ED 10:39 → M ED INP 15:29 → M PCU 16:42
PROC: 30233N1 Transfusion of Nonautologous Red Blood Cells into Peripheral Vein, Percutaneous Approach (ICD-10-PCS; principal; 2017-05-14)
DX: C90.00 Multiple myeloma not having achieved remission (principal); J10.00 Influenza due to other identified influenza virus with unspecified type of pneumonia; M84.58XA Pathological fracture in neoplastic disease, other specified site, initial encounter for fracture; C79.51 Secondary malignant neoplasm of bone; G20 Parkinson's disease; G47.00 Insomnia, unspecified; D69.6 Thrombocytopenia, unspecified; B97.29 Other coronavirus as the cause of diseases classified elsewhere; E87.6 Hypokalemia; D50.9 Iron deficiency anemia, unspecified; I10 Essential (primary) hypertension; Z79.82 Long term (current) use of aspirin; Z79.899 Other long term (current) drug therapy

== ENCOUNTER → 2017-06-06 | Outpatient (REF) | payer MEDICARE | LOC: M LAB REF 13:00 | DX: C90.00 Multiple myeloma not having achieved remission (principal) | CPT/HCPCS: 88300 ==

== ENCOUNTER → 2017-06-19 | Outpatient (REF) | payer MEDICARE ==
[2017-06-21 10:15] LABS: IMMEDIATE SPIN CROSSMATCH 1 2
== END ==
LOC: M LAB REF 12:57
DX: C90.00 Multiple myeloma not having achieved remission (principal); D64.9 Anemia, unspecified
CPT/HCPCS: 86900

== ENCOUNTER 2017-06-21 09:37 | Outpatient (CLI) | payer MEDICARE ==
[2017-06-21] MEDS ORDERED: diphenhydrAMINE 50 MG CAP PO (10:00)
[2017-06-21] MEDS ORDERED: ACETAMINOPHEN TAB 650MG DOSE (2X325MG) PO (10:00)
== END 2017-06-21 15:30 | disposition home or self-care (01) ==
LOC: M INFU 09:37
DX: C90.00 Multiple myeloma not having achieved remission (principal); D64.9 Anemia, unspecified; Z79.82 Long term (current) use of aspirin; Z79.899 Other long term (current) drug therapy
CPT/HCPCS: 36430

== ENCOUNTER → 2017-06-26 | Outpatient (REF) | payer MEDICARE ==
[2017-06-28 11:22] LABS: IMMEDIATE SPIN CROSSMATCH 1 2
== END ==
LOC: M LAB REF 16:44
DX: C90.00 Multiple myeloma not having achieved remission (principal); D64.9 Anemia, unspecified
CPT/HCPCS: 86900

== ENCOUNTER 2017-06-28 08:28 | Outpatient (CLI) | payer MEDICARE ==
[2017-06-28] MEDS ORDERED: ACETAMINOPHEN TAB 650MG DOSE (2X325MG) PO (08:45)
[2017-06-28] MEDS ORDERED: diphenhydrAMINE 50 MG CAP PO (08:45)
== END 2017-06-28 14:00 | disposition home or self-care (01) ==
LOC: M INFU 08:28
DX: C90.00 Multiple myeloma not having achieved remission (principal); I10 Essential (primary) hypertension; G20 Parkinson's disease; Z79.82 Long term (current) use of aspirin; Z79.899 Other long term (current) drug therapy; Z79.891 Long term (current) use of opiate analgesic
CPT/HCPCS: 36430

== ENCOUNTER → 2017-07-03 | Outpatient (CLI) | payer MEDICARE ==
[2017-07-03 17:49] LABS: ANION GAP 6 MEQ/L (8-16); BLOOD UREA NITROGEN 23 MG/DL (7-18); CARBON DIOXIDE LEVEL 27 MEQ/L (21-32); CHLORIDE LEVEL 102 MEQ/L (98-107); CREATININE FOR GFR 0.74 MG/DL (0.70-1.30); GLOMERULAR FILTRATION RATE > 60.0 (>49); GLUCOSE, FASTING 74 MG/DL (70-100); POTASSIUM SERUM 4.2 MEQ/L (3.5-5.1); SODIUM LEVEL 135 MEQ/L (136-145)
== END ==
LOC: M LAB 16:44
DX: R41.0 Disorientation, unspecified (principal)
CPT/HCPCS: 84443

== ENCOUNTER → 2017-07-03 | Outpatient (REF) | payer MEDICARE | LOC: M SFHCPLAZ 16:10 | DX: R41.0 Disorientation, unspecified (principal); Z53.20 Procedure and treatment not carried out because of patient's decision for unspecified reasons ==

== ENCOUNTER 2017-08-25 08:06 | Outpatient (CLI) | payer MEDICARE | END 2017-09-01 | LOC: M PLARAD 08:06 | DX: M84.48XD Pathological fracture, other site, subsequent encounter for fracture with routine healing (principal) | CPT/HCPCS: 72158 ==

== ENCOUNTER → 2017-08-25 | Outpatient (REF) | payer MEDICARE ==
[2017-08-25 12:52] LABS: CREATININE FOR GFR 0.57 MG/DL (0.70-1.30); GLOMERULAR FILTRATION RATE > 60.0 (>49)
[2017-08-25 12:52] LABS: BLOOD UREA NITROGEN 26 MG/DL (7-18)
== END ==
LOC: M LABDRAW1 10:12
DX: M84.48XD Pathological fracture, other site, subsequent encounter for fracture with routine healing (principal)
CPT/HCPCS: 82565

== ENCOUNTER → 2017-10-04 | Outpatient (CLI) | payer MEDICARE ==
[2017-10-04 15:42] LABS: THYROXINE (T4) 7.8 UG/DL (4.5-12.0)
== END ==
LOC: M WUC 13:32
DX: R53.83 Other fatigue (principal)
CPT/HCPCS: 84443

== ENCOUNTER 2017-10-29 12:03 | Inpatient (IN) | payer MEDICARE ==
[2017-10-29 12:48] LABS: ABG BASE EXCESS 0.6 (-2.0-2.0); ABG HCO3 23.1 MEQ/L (22.0-26.0); ABG O2 SATURATION 93.5 % (95.0-99.0); ABG PARTIAL PRESSURE CO2 29.2 mmHg (35.0-45.0); ABG PARTIAL PRESSURE O2 64.7 mmHg (75.0-100.0); ABG pH (ARTERIAL) 7.517 UNITS (7.350-7.450)
[2017-10-29 12:52] LABS: BASO % 0.2 % (0.0-1.0); EOS # 0.1 10^3/uL (0.0-0.50); HEMATOCRIT 24.8 % (42.0-52.0); HEMOGLOBIN 8.3 g/dl (13.5-17.5); IMMATURE GRANULOCYTE % 1.2 % (0-3.0); LYMPH # 0.7 10^3/uL (1.5-4.5); LYMPH % 12.8 % (24.0-44.0); MEAN CORPUSCULAR HEMOGLOBIN 36.9 pg (27.0-33.0); MEAN CORPUSCULAR HGB CONC 33.5 g/dl (32.0-36.5); MEAN CORPUSCULAR VOLUME 110.2 fl (80.0-96.0); MONO # 0.7 10^3/uL (0.0-0.8); MONO % 12.3 % (0.0-5.0); NEUTROPHILS # 4.2 10^3/uL (1.8-7.7); NEUTROPHILS % 72.5 % (36.0-66.0); PLATELET COUNT, AUTOMATED 119 10^3/uL (150-450); RED BLOOD COUNT 2.25 10^6/uL (4.30-6.10); RED CELL DISTRIBUTION WIDTH 14.9 % (11.5-14.5); WHITE BLOOD COUNT 5.8 10^3/uL (4.0-10.0)
[2017-10-29] MEDS: NS 1,000 ML IV ×2 (13:00→20:10)
[2017-10-29 13:12] LABS: AMMONIA 21 uMOL/L (<32)
[2017-10-29 13:13] LABS: LACTIC ACID SEPSIS PROTOCOL 0.9 MMOL/L (0.4-2.0)
[2017-10-29 13:16] LABS: ALBUMIN 3.1 GM/DL (3.2-5.2); ALBUMIN/GLOBULIN RATIO 0.53 (1.00-1.93); ALKALINE PHOSPHATASE 57 U/L (45-117); ALT/SGPT 19 U/L (12-78); ANION GAP 7 MEQ/L (8-16); AST/SGOT 21 U/L (7-37); BILIRUBIN,DIRECT 0.1 MG/DL (0.0-0.2); BILIRUBIN,TOTAL 0.6 MG/DL (0.2-1.0); BLOOD UREA NITROGEN 25 MG/DL (7-18); CALCIUM LEVEL 7.1 MG/DL (8.8-10.2); CARBON DIOXIDE LEVEL 27 MEQ/L (21-32); CHLORIDE LEVEL 105 MEQ/L (98-107); CPK CREATINE PHOSPHOKINASE 52 U/L (39-308); CREATININE FOR GFR 0.86 MG/DL (0.70-1.30); GLOMERULAR FILTRATION RATE > 60.0 (>49); GLUCOSE, FASTING 97 MG/DL (70-100); LIPASE 73 U/L (73-393); POTASSIUM SERUM 3.9 MEQ/L (3.5-5.1); SODIUM LEVEL 139 MEQ/L (136-145); TOTAL PROTEIN 8.9 GM/DL (6.4-8.2); TROPONIN I 0.06 NG/ML (< 0.10)
[2017-10-29 13:21] LABS: CK-MB VALUE MASS < 1.0 NG/ML (<3.6); MB/CK RELATIVE INDEX 1.92 (< OR =4); NT-PRO BNP 1009 PG/ML (<125); THYROXINE (T4) 9.1 UG/DL (4.5-12.0)
[2017-10-29] MEDS ORDERED: ISOVUE-370 76% 100ML VIAL (Q9967) As Ordered (13:31)
[2017-10-29] MEDS: CIPROFLOXACIN 400 MG in APPROPRIATE DILUENT 1 EA IV (14:47)
[2017-10-29 15:09] LABS: KETONE, URINE AUTO RFX NEGATIVE (NEGATIVE); LEUKOCYTE ESTERASE UR AUTO RFX NEGATIVE (NEGATIVE); NITRITE, URINE AUTO RFX NEGATIVE (NEGATIVE); RBC, URINE AUTO RFX 4 /HPF (0-3); SPECIFIC GRAVITY UR AUTO RFX 1.033 (1.002-1.035); SQUAM EPITHELIAL CELL UR AURFX 0 /HPF (0-6); WBC, URINE AUTO RFX 1 /HPF (0-3)
[2017-10-29] MEDS ORDERED: TRIAMCINOLONE ACET 0.1% OINTMENT 15 GM TOP (16:45)
[2017-10-29] MEDS ORDERED: ONDANSETRON 4 MG TAB (S0181) PO (16:45)
[2017-10-29] MEDS: SINEMET 25-100 MG TAB PO ×2 (17:21→23:27)
[2017-10-29] MEDS: SELEGILINE 5 MG PO (23:26)
[2017-10-29] MEDS: rOPINIRole 2MG TAB PO (23:27)
[2017-10-29] MEDS: FAMOTIDINE 20 MG TAB PO (23:27)
[2017-10-29] MEDS: ACYCLOVIR 200 MG CAPSULE PO (23:27)
[2017-10-29] MEDS: SINEMET**CR** 25/100 TABCR PO (23:27)
[2017-10-29] MEDS: MIRALAX *UNIT DOSE* 17GM PACKET PO (23:28)
[2017-10-29] MEDS: CETIRIZINE (ZyrTEC) 10 MG TAB PO (23:28)
[2017-10-30] MEDS: NS 1,000 ML IV ×3 (02:29→18:57)
[2017-10-30 04:16] LABS: APPEARANCE, URINE HAZY (CLEAR); BACTERIA, URINE AUTO NEGATIVE (NEGATIVE); BILIRUBIN, URINE AUTO NEGATIVE (NEGATIVE); BLOOD, URINE BLOOD 3+ (NEGATIVE); COLOR, URINE YELLOW (YELLOW); GLUCOSE, URINE (UA) AUTO NEGATIVE (NEGATIVE); KETONE, URINE AUTO TRACE mg/dL (NEGATIVE); LEUKOCYTE ESTERASE, URINE AUTO NEGATIVE (NEGATIVE); NITRITE, URINE AUTO NEGATIVE (NEGATIVE); PROTEIN, URINE AUTO 2+ mg/dL (NEGATIVE); RBC, URINE AUTO TNTC /HPF (0-3); SPECIFIC GRAVITY URINE AUTO 1.021 (1.002-1.035); SQUAMOUS EPITHELIAL CELL UR AU 0 /HPF (0-6); UROBILINOGEN, URINE AUTO 0.2 mg/dL (0.0-2.0); WBC, URINE AUTO 3 /HPF (0-3)
[2017-10-30 06:42] LABS: BASO % 0.2 % (0.0-1.0); EOS % 0.6 % (0.0-3.0); HEMATOCRIT 22.6 % (42.0-52.0); HEMOGLOBIN 7.6 g/dl (13.5-17.5); IMMATURE GRANULOCYTE % 1.5 % (0-3.0); LYMPH # 0.3 10^3/uL (1.5-4.5); LYMPH % 6.9 % (24.0-44.0); MEAN CORPUSCULAR HEMOGLOBIN 36.5 pg (27.0-33.0); MEAN CORPUSCULAR HGB CONC 33.6 g/dl (32.0-36.5); MEAN CORPUSCULAR VOLUME 108.7 fl (80.0-96.0); MONO # 0.7 10^3/uL (0.0-0.8); MONO % 15.8 % (0.0-5.0); NEUTROPHILS # 3.5 10^3/uL (1.8-7.7); PLATELET COUNT, AUTOMATED 100 10^3/uL (150-450); RED BLOOD COUNT 2.08 10^6/uL (4.30-6.10); RED CELL DISTRIBUTION WIDTH 14.6 % (11.5-14.5); WHITE BLOOD COUNT 4.7 10^3/uL (4.0-10.0)
[2017-10-30] MEDS: SINEMET 25-100 MG TAB PO ×4 (06:51→20:11)
[2017-10-30] MEDS: ACETAMINOPHEN TAB 650MG DOSE (2X325MG) PO ×2 (06:52→20:12)
[2017-10-30 06:59] LABS: ANION GAP 8 MEQ/L (8-16); BLOOD UREA NITROGEN 18 MG/DL (7-18); CARBON DIOXIDE LEVEL 22 MEQ/L (21-32); CHLORIDE LEVEL 104 MEQ/L (98-107); CREATININE FOR GFR 0.78 MG/DL (0.70-1.30); GLOMERULAR FILTRATION RATE > 60.0 (>49); GLUCOSE, FASTING 101 MG/DL (70-100); POTASSIUM SERUM 3.7 MEQ/L (3.5-5.1); SODIUM LEVEL 134 MEQ/L (136-145)
[2017-10-30] MEDS: ACYCLOVIR 200 MG CAPSULE PO ×2 (10:00→20:11)
[2017-10-30] MEDS: CETIRIZINE (ZyrTEC) 10 MG TAB PO ×2 (10:00→20:11)
[2017-10-30] MEDS: FAMOTIDINE 20 MG TAB PO ×2 (10:00→20:11)
[2017-10-30] MEDS ORDERED: FLEET ENEMA PR (10:45)
[2017-10-30] MEDS ORDERED: IPRATROPIUM 0.5MG/ALBUTEROL 2.5MG INH SOL UD 3ML (DUONEB)(J7620) NEB (10:45)
[2017-10-30] MEDS: LevoFLOXacin IV 500 MG in APPROPRIATE DILUENT 1 EA IV (10:53)
[2017-10-30] MEDS: DOCUSATE SODIUM 100 MG CAP PO ×2 (10:53→20:11)
[2017-10-30] MEDS: IPRATROPIUM 0.5MG/ALBUTEROL 2.5MG INH SOL UD 3ML (DUONEB)(J7620) NEB ×3 (12:01→20:36)
[2017-10-30 12:19] LABS: HEMATOCRIT 22.4 % (42.0-52.0); HEMOGLOBIN 7.6 g/dl (13.5-17.5)
[2017-10-30 19:23] LABS: IMMEDIATE SPIN CROSSMATCH 1 1
[2017-10-30] MEDS: SELEGILINE 5 MG PO (20:05)
[2017-10-30] MEDS: traZODone 50 MG TAB PO (20:11)
[2017-10-30] MEDS: SINEMET**CR** 25/100 TABCR PO (20:11)
[2017-10-30] MEDS: rOPINIRole 2MG TAB PO (20:11)
[2017-10-31] MEDS: ACETAMINOPHEN TAB 650MG DOSE (2X325MG) PO ×3 (00:15→17:14)
[2017-10-31] MEDS: NS 1,000 ML IV ×2 (03:58→05:29)
[2017-10-31] MEDS: SINEMET 25-100 MG TAB PO ×4 (06:17→20:06)
[2017-10-31] MEDS: IPRATROPIUM 0.5MG/ALBUTEROL 2.5MG INH SOL UD 3ML (DUONEB)(J7620) NEB ×4 (07:12→19:35)
[2017-10-31] MEDS ORDERED: POTASSIUM CHLORIDE 10 MEQ SR TABLET PO (07:45)
[2017-10-31 09:13] LABS: HEMATOCRIT 21.3 % (42.0-52.0); HEMOGLOBIN 7.2 g/dl (13.5-17.5); MEAN CORPUSCULAR HEMOGLOBIN 36.7 pg (27.0-33.0); MEAN CORPUSCULAR HGB CONC 33.8 g/dl (32.0-36.5); MEAN CORPUSCULAR VOLUME 108.7 fl (80.0-96.0); RED BLOOD COUNT 1.96 10^6/uL (4.30-6.10); RED CELL DISTRIBUTION WIDTH 17.3 % (11.5-14.5)
[2017-10-31 09:50] LABS: ALBUMIN/GLOBULIN RATIO 0.46 (1.00-1.93); ALKALINE PHOSPHATASE 57 U/L (45-117); ALT/SGPT 15 U/L (12-78); ANION GAP 8 MEQ/L (8-16); AST/SGOT 50 U/L (7-37); BILIRUBIN,TOTAL 0.3 MG/DL (0.2-1.0); BLOOD UREA NITROGEN 20 MG/DL (7-18); CALCIUM LEVEL 6.1 MG/DL (8.8-10.2); CARBON DIOXIDE LEVEL 23 MEQ/L (21-32); CHLORIDE LEVEL 108 MEQ/L (98-107); CREATININE FOR GFR 0.68 MG/DL (0.70-1.30); GLOMERULAR FILTRATION RATE > 60.0 (>49); GLUCOSE, FASTING 85 MG/DL (70-100); POTASSIUM SERUM 3.9 MEQ/L (3.5-5.1); SODIUM LEVEL 139 MEQ/L (136-145); TOTAL PROTEIN 7.3 GM/DL (6.4-8.2)
[2017-10-31 10:03] LABS: ALBUMIN 2.3 GM/DL (3.2-5.2); PLATELET COUNT, AUTOMATED 79 10^3/uL (150-450); WHITE BLOOD COUNT 1.9 10^3/uL (4.0-10.0)
[2017-10-31 10:04] LABS: IMMATURE PLATELET FRACTION % 3.2 % (0.0-10.9); POS COUNT POS FLAG
[2017-10-31] MEDS: ACYCLOVIR 200 MG CAPSULE PO ×2 (10:45→20:05)
[2017-10-31] MEDS: LevoFLOXacin IV 500 MG in APPROPRIATE DILUENT 1 EA IV (10:45)
[2017-10-31] MEDS: CETIRIZINE (ZyrTEC) 10 MG TAB PO ×2 (10:45→20:06)
[2017-10-31] MEDS: FAMOTIDINE 20 MG TAB PO ×2 (10:45→20:05)
[2017-10-31] MEDS: DOCUSATE SODIUM 100 MG CAP PO ×2 (10:45→20:06)
[2017-10-31 16:41] LABS: IMMEDIATE SPIN CROSSMATCH 1 1
[2017-10-31] MEDS: traZODone 50 MG TAB PO (20:05)
[2017-10-31] MEDS: SELEGILINE 5 MG PO (20:05)
[2017-10-31] MEDS: rOPINIRole 2MG TAB PO (20:06)
[2017-10-31] MEDS: SINEMET**CR** 25/100 TABCR PO (20:06)
[2017-11-01] MEDS: SINEMET 25-100 MG TAB PO ×2 (06:01→12:22)
[2017-11-01] MEDS: IPRATROPIUM 0.5MG/ALBUTEROL 2.5MG INH SOL UD 3ML (DUONEB)(J7620) NEB ×2 (07:34→11:06)
[2017-11-01 08:17] LABS: BASO % 0.3 % (0.0-1.0); EOS # 0.1 10^3/uL (0.0-0.50); EOS % 1.9 % (0.0-3.0); HEMATOCRIT 25.8 % (42.0-52.0); HEMOGLOBIN 8.9 g/dl (13.5-17.5); IMMATURE GRANULOCYTE % 1.7 % (0-3.0); LYMPH # 0.6 10^3/uL (1.5-4.5); LYMPH % 16.7 % (24.0-44.0); MEAN CORPUSCULAR HGB CONC 34.5 g/dl (32.0-36.5); MEAN CORPUSCULAR VOLUME 104.5 fl (80.0-96.0); MONO # 0.5 10^3/uL (0.0-0.8); MONO % 12.5 % (0.0-5.0); NEUTROPHILS # 2.4 10^3/uL (1.8-7.7); NEUTROPHILS % 66.9 % (36.0-66.0); PLATELET COUNT, AUTOMATED 105 10^3/uL (150-450); RED BLOOD COUNT 2.47 10^6/uL (4.30-6.10); RED CELL DISTRIBUTION WIDTH 17.6 % (11.5-14.5); WHITE BLOOD COUNT 3.6 10^3/uL (4.0-10.0)
[2017-11-01 08:51] LABS: ALBUMIN 2.4 GM/DL (3.2-5.2); ALBUMIN/GLOBULIN RATIO 0.45 (1.00-1.93); ALKALINE PHOSPHATASE 64 U/L (45-117); ALT/SGPT 22 U/L (12-78); ANION GAP 8 MEQ/L (8-16); AST/SGOT 29 U/L (7-37); BILIRUBIN,TOTAL 0.4 MG/DL (0.2-1.0); BLOOD UREA NITROGEN 15 MG/DL (7-18); CALCIUM LEVEL 7.2 MG/DL (8.8-10.2); CARBON DIOXIDE LEVEL 23 MEQ/L (21-32); CHLORIDE LEVEL 104 MEQ/L (98-107); CREATININE FOR GFR 0.79 MG/DL (0.70-1.30); GLOMERULAR FILTRATION RATE > 60.0 (>49); GLUCOSE, FASTING 116 MG/DL (70-100); POTASSIUM SERUM 3.6 MEQ/L (3.5-5.1); SODIUM LEVEL 135 MEQ/L (136-145); TOTAL PROTEIN 7.7 GM/DL (6.4-8.2)
[2017-11-01] MEDS: DOCUSATE SODIUM 100 MG CAP PO (09:09)
[2017-11-01] MEDS: CETIRIZINE (ZyrTEC) 10 MG TAB PO (09:09)
[2017-11-01] MEDS: FAMOTIDINE 20 MG TAB PO (09:09)
[2017-11-01] MEDS: ACYCLOVIR 200 MG CAPSULE PO (09:10)
[2017-11-01 09:14] LABS: APPEARANCE, URINE CLEAR (CLEAR); BACTERIA, URINE AUTO NEGATIVE (NEGATIVE); BILIRUBIN, URINE AUTO NEGATIVE (NEGATIVE); BLOOD, URINE BLOOD 2+ (NEGATIVE); COLOR, URINE YELLOW (YELLOW); GLUCOSE, URINE (UA) AUTO NEGATIVE (NEGATIVE); KETONE, URINE AUTO TRACE mg/dL (NEGATIVE); LEUKOCYTE ESTERASE, URINE AUTO NEGATIVE (NEGATIVE); MUCUS, URINE SMALL (NEGATIVE); NITRITE, URINE AUTO NEGATIVE (NEGATIVE); PROTEIN, URINE AUTO 1+ mg/dL (NEGATIVE); RBC, URINE AUTO 1 /HPF (0-3); SPECIFIC GRAVITY URINE AUTO 1.019 (1.002-1.035); SQUAMOUS EPITHELIAL CELL UR AU 0 /HPF (0-6); UROBILINOGEN, URINE AUTO 0.2 mg/dL (0.0-2.0); WBC, URINE AUTO 0 /HPF (0-3)
[2017-11-01] MEDS: LevoFLOXacin IV 500 MG in APPROPRIATE DILUENT 1 EA IV (10:48)
== END 2017-11-01 14:27 | disposition home health service (06) | DRG 70 ==
LOC: M MSPAV 10-30 10:23 → M ED 12:03 → M ED INP 16:46 → M MSPAV 20:07
PROC: 30233N1 Transfusion of Nonautologous Red Blood Cells into Peripheral Vein, Percutaneous Approach (ICD-10-PCS; principal; 2017-10-30)
DX: G93.41 Metabolic encephalopathy (principal); J18.9 Pneumonia, unspecified organism; C90.00 Multiple myeloma not having achieved remission; E86.0 Dehydration; G20 Parkinson's disease; K21.9 Gastro-esophageal reflux disease without esophagitis; T45.1X5A Adverse effect of antineoplastic and immunosuppressive drugs, initial encounter; K59.00 Constipation, unspecified; R04.0 Epistaxis; Z79.899 Other long term (current) drug therapy

== ENCOUNTER 2017-11-23 09:51 | Emergency (ER) | payer MEDICARE ==
[2017-11-23 10:59] LABS: BASO % 0.2 % (0.0-1.0); EOS # 0.1 10^3/uL (0.0-0.50); EOS % 1.2 % (0.0-3.0); HEMOGLOBIN 9.7 g/dl (13.5-17.5); LYMPH # 0.9 10^3/uL (1.5-4.5); LYMPH % 18.5 % (24.0-44.0); MEAN CORPUSCULAR HEMOGLOBIN 32.7 pg (27.0-33.0); MEAN CORPUSCULAR HGB CONC 33.4 g/dl (32.0-36.5); MEAN CORPUSCULAR VOLUME 97.6 fl (80.0-96.0); MONO # 1.1 10^3/uL (0.0-0.8); MONO % 22.2 % (0.0-5.0); NEUTROPHILS # 2.7 10^3/uL (1.8-7.7); NEUTROPHILS % 54.9 % (36.0-66.0); PLATELET COUNT, AUTOMATED 113 10^3/uL (150-450); RED BLOOD COUNT 2.97 10^6/uL (4.30-6.10)
[2017-11-23 11:14] LABS: ANION GAP 7 MEQ/L (8-16); BLOOD UREA NITROGEN 16 MG/DL (7-18); CARBON DIOXIDE LEVEL 26 MEQ/L (21-32); CHLORIDE LEVEL 103 MEQ/L (98-107); CK-MB VALUE MASS 1.1 NG/ML (<3.6); CPK CREATINE PHOSPHOKINASE 86 U/L (39-308); CREATININE FOR GFR 0.91 MG/DL (0.70-1.30); GLOMERULAR FILTRATION RATE > 60.0 (>49); GLUCOSE, FASTING 108 MG/DL (70-100); MB/CK RELATIVE INDEX 1.27 (< OR =4); NT-PRO BNP 1758 PG/ML (<125); POTASSIUM SERUM 4.1 MEQ/L (3.5-5.1); SODIUM LEVEL 136 MEQ/L (136-145); TROPONIN I < 0.02 NG/ML (< 0.10)
[2017-11-23] MEDS ORDERED: ISOVUE-370 76% 100ML VIAL (Q9967) As Ordered (11:31)
[2017-11-23 13:35] LABS: ABG BASE EXCESS -0.8 (-2.0-2.0); ABG O2 SATURATION 93.3 % (95.0-99.0); ABG STANDARD HCO3 23.7 MEQ/L (22.0-26.0); ABG TOTAL CO2 22.9 MEQ/L (23.0-31.0); ABG pH (ARTERIAL) 7.483 UNITS (7.350-7.450)
== END 2017-11-23 16:28 | disposition home or self-care (01) ==
LOC: M ED 09:51
DX: R09.02 Hypoxemia (principal); J98.11 Atelectasis; C90.00 Multiple myeloma not having achieved remission; R00.0 Tachycardia, unspecified; G20 Parkinson's disease; Z79.899 Other long term (current) drug therapy; Z79.82 Long term (current) use of aspirin; Z94.81 Bone marrow transplant status
CPT/HCPCS: Q9967

== ENCOUNTER → 2017-12-07 | Outpatient (REF) | payer MEDICARE ==
[2017-12-07 18:36] LABS: ALBUMIN 3.1 GM/DL (3.2-5.2); ALBUMIN/GLOBULIN RATIO 0.42 (1.00-1.93); ALKALINE PHOSPHATASE 43 U/L (45-117); ALT/SGPT 16 U/L (12-78); ANION GAP 7 MEQ/L (8-16); AST/SGOT 19 U/L (7-37); BILIRUBIN,TOTAL 0.3 MG/DL (0.2-1.0); BLOOD UREA NITROGEN 47 MG/DL (7-18); CALCIUM LEVEL 8.5 MG/DL (8.8-10.2); CARBON DIOXIDE LEVEL 27 MEQ/L (21-32); CHLORIDE LEVEL 103 MEQ/L (98-107); CREATININE FOR GFR 1.11 MG/DL (0.70-1.30); GLOMERULAR FILTRATION RATE > 60.0 (>49); GLUCOSE, FASTING 89 MG/DL (70-100); POTASSIUM SERUM 4.2 MEQ/L (3.5-5.1); SODIUM LEVEL 137 MEQ/L (136-145); TOTAL PROTEIN 10.4 GM/DL (6.4-8.2)
[2017-12-07 18:42] LABS: BASO % 0.2 % (0.0-1.0); EOS % 0.3 % (0.0-3.0); HEMATOCRIT 28.8 % (42.0-52.0); HEMOGLOBIN 9.6 g/dl (13.5-17.5); IMMATURE GRANULOCYTE % 1.2 % (0-3.0); LYMPH # 0.8 10^3/uL (1.5-4.5); LYMPH % 13.5 % (24.0-44.0); MEAN CORPUSCULAR HEMOGLOBIN 32.9 pg (27.0-33.0); MEAN CORPUSCULAR HGB CONC 33.3 g/dl (32.0-36.5); MEAN CORPUSCULAR VOLUME 98.6 fl (80.0-96.0); MONO # 1.1 10^3/uL (0.0-0.8); MONO % 18.6 % (0.0-5.0); NEUTROPHILS % 66.2 % (36.0-66.0); PLATELET COUNT, AUTOMATED 162 10^3/uL (150-450); RED BLOOD COUNT 2.92 10^6/uL (4.30-6.10); RED CELL DISTRIBUTION WIDTH 18.8 % (11.5-14.5)
[2017-12-07 18:56] LABS: APPEARANCE, URINE CLOUDY (CLEAR); BACTERIA, URINE AUTO NEGATIVE (NEGATIVE); BILIRUBIN, URINE AUTO NEGATIVE (NEGATIVE); BLOOD, URINE BLOOD 2+ (NEGATIVE); COLOR, URINE YELLOW (YELLOW); GLUCOSE, URINE (UA) AUTO NEGATIVE (NEGATIVE); KETONE, URINE AUTO TRACE mg/dL (NEGATIVE); LEUKOCYTE ESTERASE, URINE AUTO NEGATIVE (NEGATIVE); NITRITE, URINE AUTO NEGATIVE (NEGATIVE); PROTEIN, URINE AUTO 2+ mg/dL (NEGATIVE); RBC, URINE AUTO 2 /HPF (0-3); SPECIFIC GRAVITY URINE AUTO 1.021 (1.002-1.035); SQUAMOUS EPITHELIAL CELL UR AU 1 /HPF (0-6); URIC ACID CRYSTALS SMALL; UROBILINOGEN, URINE AUTO 0.2 mg/dL (0.0-2.0); WBC, URINE AUTO 8 /HPF (0-3)
== END ==
LOC: M SFHCPLAZ 16:11
DX: R35.0 Frequency of micturition (principal)
CPT/HCPCS: 80053

== ENCOUNTER 2017-12-19 17:05 | Observation (INO) | payer MEDICARE ==
[2017-12-19 18:34] LABS: BASO % 0.2 % (0.0-1.0); EOS # 0.1 10^3/uL (0.0-0.50); EOS % 1.6 % (0.0-3.0); HEMATOCRIT 23.1 % (42.0-52.0); HEMOGLOBIN 8.1 g/dl (13.5-17.5); IMMATURE GRANULOCYTE % 1.8 % (0-3.0); LYMPH # 0.3 10^3/uL (1.5-4.5); LYMPH % 6.9 % (24.0-44.0); MEAN CORPUSCULAR HEMOGLOBIN 33.1 pg (27.0-33.0); MEAN CORPUSCULAR HGB CONC 35.1 g/dl (32.0-36.5); MEAN CORPUSCULAR VOLUME 94.3 fl (80.0-96.0); MONO % 20.4 % (0.0-5.0); NEUTROPHILS # 3.4 10^3/uL (1.8-7.7); NEUTROPHILS % 69.1 % (36.0-66.0); RED BLOOD COUNT 2.45 10^6/uL (4.30-6.10); RED CELL DISTRIBUTION WIDTH 19.3 % (11.5-14.5); WHITE BLOOD COUNT 4.9 10^3/uL (4.0-10.0)
[2017-12-19 18:55] LABS: INR 1.27; PROTHROMBIN TIME 16.1 SECONDS (12.1-14.4)
[2017-12-19 18:57] LABS: ALBUMIN 2.8 GM/DL (3.2-5.2); ALBUMIN/GLOBULIN RATIO 0.54 (1.00-1.93); ALKALINE PHOSPHATASE 52 U/L (45-117); ALT/SGPT 9 U/L (12-78); ANION GAP 12 MEQ/L (8-16); AST/SGOT 14 U/L (7-37); BILIRUBIN,DIRECT 0.1 MG/DL (0.0-0.2); BILIRUBIN,TOTAL 0.4 MG/DL (0.2-1.0); BLOOD UREA NITROGEN 48 MG/DL (7-18); CARBON DIOXIDE LEVEL 24 MEQ/L (21-32); CHLORIDE LEVEL 95 MEQ/L (98-107); CREATININE FOR GFR 2.61 MG/DL (0.70-1.30); GLOMERULAR FILTRATION RATE 26.3 (>49); GLUCOSE, FASTING 100 MG/DL (70-100); POTASSIUM SERUM 4.1 MEQ/L (3.5-5.1); SODIUM LEVEL 131 MEQ/L (136-145)
[2017-12-19 19:26] LABS: PLATELET COUNT, AUTOMATED 81 10^3/uL (150-450)
[2017-12-19 19:27] LABS: IMMATURE PLATELET FRACTION % 3.9 % (0.0-10.9); PLATELET F 79
[2017-12-19] MEDS: NS 1,000 ML IV ×3 (19:47→23:42)
[2017-12-19 20:50] LABS: APPEARANCE, URINE CLOUDY (CLEAR); BACTERIA, URINE AUTO NEGATIVE (NEGATIVE); BILIRUBIN, URINE AUTO NEGATIVE (NEGATIVE); BLOOD, URINE BLOOD NEGATIVE (NEGATIVE); CALCIUM OXALATE CRYSTALS SMALL; COLOR, URINE AMBER (YELLOW); GLUCOSE, URINE (UA) AUTO NEGATIVE (NEGATIVE); KETONE, URINE AUTO TRACE mg/dL (NEGATIVE); LEUKOCYTE ESTERASE, URINE AUTO NEGATIVE (NEGATIVE); NITRITE, URINE AUTO NEGATIVE (NEGATIVE); PROTEIN, URINE AUTO 1+ mg/dL (NEGATIVE); RBC, URINE AUTO 0 /HPF (0-3); SQUAMOUS EPITHELIAL CELL UR AU 1 /HPF (0-6); WBC, URINE AUTO 5 /HPF (0-3)
[2017-12-19 20:58] LABS: SODIUM,RANDOM URINE 27 MEQ/L
[2017-12-19] MEDS ORDERED: ONDANSETRON 4 MG TAB (S0181) PO (22:15)
[2017-12-19] MEDS ORDERED: BISACODYL 5 MG TAB PO (22:15)
[2017-12-19] MEDS ORDERED: MIRALAX *UNIT DOSE* 17GM PACKET PO (22:15)
[2017-12-19 23:49] LABS: CPK CREATINE PHOSPHOKINASE 63 U/L (39-308)
[2017-12-20] MEDS: SINEMET 25-100 MG TAB PO ×4 (00:49→16:03)
[2017-12-20] MEDS: MELATONIN 10 MG PO (00:49)
[2017-12-20] MEDS: FAMOTIDINE 20 MG TAB PO ×2 (00:49→09:22)
[2017-12-20] MEDS: methylPREDNISolone INJ 125 MG/2 ML VIAL (J2930) IV ×3 (00:49→14:39)
[2017-12-20] MEDS: ACYCLOVIR 200 MG CAPSULE PO ×2 (00:49→09:23)
[2017-12-20] MEDS: MELATONIN 3 MG PO (00:49)
[2017-12-20] MEDS: ACETAMINOPHEN 500 MG TAB PO (00:51)
[2017-12-20] MEDS: NS 1,000 ML IV ×3 (05:04→12:40)
[2017-12-20 06:38] LABS: HEMATOCRIT 23.8 % (42.0-52.0); HEMOGLOBIN 8.2 g/dl (13.5-17.5); MEAN CORPUSCULAR HEMOGLOBIN 32.8 pg (27.0-33.0); MEAN CORPUSCULAR HGB CONC 34.5 g/dl (32.0-36.5); MEAN CORPUSCULAR VOLUME 95.2 fl (80.0-96.0); RED CELL DISTRIBUTION WIDTH 19.2 % (11.5-14.5); WHITE BLOOD COUNT 4.3 10^3/uL (4.0-10.0)
[2017-12-20 06:51] LABS: PLATELET COUNT, AUTOMATED 78 10^3/uL (150-450)
[2017-12-20 07:07] LABS: ALBUMIN 2.6 GM/DL (3.2-5.2); ALBUMIN/GLOBULIN RATIO 0.48 (1.00-1.93); ALKALINE PHOSPHATASE 51 U/L (45-117); ALT/SGPT 11 U/L (12-78); ANION GAP 8 MEQ/L (8-16); AST/SGOT 13 U/L (7-37); BILIRUBIN,TOTAL 0.3 MG/DL (0.2-1.0); BLOOD UREA NITROGEN 42 MG/DL (7-18); CALCIUM LEVEL 7.6 MG/DL (8.8-10.2); CARBON DIOXIDE LEVEL 24 MEQ/L (21-32); CHLORIDE LEVEL 100 MEQ/L (98-107); CREATININE FOR GFR 1.33 MG/DL (0.70-1.30); GLOMERULAR FILTRATION RATE 57.3 (>49); GLUCOSE, FASTING 115 MG/DL (70-100); MAGNESIUM LEVEL 2.4 MG/DL (1.8-2.4); PHOSPHORUS LEVEL 3.5 MG/DL (2.5-4.9); POTASSIUM SERUM 4.3 MEQ/L (3.5-5.1); SODIUM LEVEL 132 MEQ/L (136-145)
[2017-12-20] MEDS: ASPIRIN 81 MG ENTERIC TAB PO (09:22)
[2017-12-20 16:44] LABS: ALBUMIN 2.3 GM/DL (3.2-5.2); ANION GAP 7 MEQ/L (8-16); BLOOD UREA NITROGEN 38 MG/DL (7-18); CARBON DIOXIDE LEVEL 24 MEQ/L (21-32); CHLORIDE LEVEL 103 MEQ/L (98-107); CREATININE FOR GFR 0.94 MG/DL (0.70-1.30); GLOMERULAR FILTRATION RATE > 60.0 (>49); GLUCOSE, FASTING 118 MG/DL (70-100); PHOSPHORUS LEVEL 3.4 MG/DL (2.5-4.9); POTASSIUM SERUM 4.6 MEQ/L (3.5-5.1); SODIUM LEVEL 134 MEQ/L (136-145)
== END 2017-12-20 17:39 | disposition home or self-care (01) ==
LOC: M ED 17:05 → M ED INP 22:27 → M MS5PR 23:25
DX: N17.9 Acute kidney failure, unspecified (principal); R21 Rash and other nonspecific skin eruption; G20 Parkinson's disease; Z79.82 Long term (current) use of aspirin; Z79.899 Other long term (current) drug therapy
CPT/HCPCS: J2930

== ENCOUNTER 2018-01-19 12:24 | Outpatient (RCR) | payer MEDICARE | END 2018-01-21 | LOC: M ST 12:24 | DX: G20 Parkinson's disease (principal); R47.1 Dysarthria and anarthria | CPT/HCPCS: 92507 ==

== ENCOUNTER 2018-01-22 14:29 | Outpatient (RCR) | payer MEDICARE | END 2018-02-21 | LOC: M ST 02-12 12:47 | DX: G20 Parkinson's disease (principal); R47.1 Dysarthria and anarthria; C90.00 Multiple myeloma not having achieved remission | CPT/HCPCS: 92507 ==

== ENCOUNTER 2018-03-19 13:15 | Outpatient (RCR) | payer MEDICARE ==
[~2018-03-19 13:15] MED LIST: ACET500T15 PO; ACYC200CA PO; ACYC400T PO; ASPI1TAB15 PO; CALTCHW6 PO; CARB1TAB PO; CARB25TA9 PO; CETI10TA PO; CHLO25TA PO; CYTOXAN PO; DELS30LI4 PO; DEXA4TA PO; FERR32TA PO; HYDR25TAB PO; IBUPOTC PO; LEVA1TAB2 PO; MELA1CAP PO; MIRA3350 PO; ONDA8TAB7 PO; OSEL75CA2 PO; PEG1POW PO; PERCOCET PO; POMA4CAP PO; PRED10TA2 PO; PROBCAP14 PO; RANI150T PO; ROPI2TAB24 PO; ROPI6TAB PO; SELE5CAP PO; SULF1TAB93 PO; TRAZ-160 PO; TRIA1OI TOP; VITA100T20 PO; VITA500T53 PO; ZANT300T9 PO; [UNRECOGNIZED DRUG - CODE] IV; oxygen
[2018-03-20] MEDS ORDERED: PENI500T PO (12:52)
[2018-03-20] MEDS ORDERED: NYST50SS PO (12:53)
== END 2018-03-23 ==
LOC: M ST 13:15
PROVIDERS: ATTEND Student in an Organized Health Care Education/Training Program
DX: G20 Parkinson's disease (principal); C90.00 Multiple myeloma not having achieved remission; R47.1 Dysarthria and anarthria
CPT/HCPCS: 92507; G9171; G9172

== ENCOUNTER 2018-03-20 10:41 | Emergency (ER) | payer MEDICARE ==
[2018-03-20] MEDS: NS 1,000 ML IV (11:30)
[2018-03-20 11:46] LABS: BASO % 0.3 % (0.0-1.0); EOS % 0.1 % (0.0-3.0); HEMATOCRIT 37.3 % (42.0-52.0); HEMOGLOBIN 13.2 g/dl (13.5-17.5); IMMATURE GRANULOCYTE % 0.4 % (0-3.0); LYMPH # 0.7 10^3/uL (1.5-4.5); LYMPH % 6.1 % (24.0-44.0); MEAN CORPUSCULAR HEMOGLOBIN 34.2 pg (27.0-33.0); MEAN CORPUSCULAR HGB CONC 35.4 g/dl (32.0-36.5); MEAN CORPUSCULAR VOLUME 96.6 fl (80.0-96.0); MONO # 1.4 10^3/uL (0.0-0.8); MONO % 12.9 % (0.0-5.0); NEUTROPHILS # 8.7 10^3/uL (1.8-7.7); NEUTROPHILS % 80.2 % (36.0-66.0); PLATELET COUNT, AUTOMATED 167 10^3/uL (150-450); RED BLOOD COUNT 3.86 10^6/uL (4.30-6.10); RED CELL DISTRIBUTION WIDTH 11.8 % (11.5-14.5); WHITE BLOOD COUNT 10.9 10^3/uL (4.0-10.0)
[2018-03-20 12:15] LABS: AMMONIA 11 uMOL/L (<32); LACTIC ACID SEPSIS PROTOCOL 0.6 MMOL/L (0.4-2.0)
[2018-03-20 12:22] LABS: ALBUMIN 4.1 GM/DL (3.2-5.2); ALBUMIN/GLOBULIN RATIO 1.52 (1.00-1.93); ALKALINE PHOSPHATASE 76 U/L (45-117); ALT/SGPT 12 U/L (12-78); ANION GAP 8 MEQ/L (8-16); AST/SGOT 11 U/L (7-37); BILIRUBIN,DIRECT 0.1 MG/DL (0.0-0.2); BILIRUBIN,TOTAL 0.6 MG/DL (0.2-1.0); BLOOD UREA NITROGEN 23 MG/DL (7-18); CALCIUM LEVEL 8.5 MG/DL (8.8-10.2); CARBON DIOXIDE LEVEL 29 MEQ/L (21-32); CHLORIDE LEVEL 99 MEQ/L (98-107); CPK CREATINE PHOSPHOKINASE 129 U/L (39-308); CREATININE FOR GFR 0.65 MG/DL (0.70-1.30); GLOMERULAR FILTRATION RATE > 60.0 (>49); GLUCOSE, FASTING 102 MG/DL (70-100); MB/CK RELATIVE INDEX 1.01 (< OR =4); POTASSIUM SERUM 3.4 MEQ/L (3.5-5.1); SODIUM LEVEL 136 MEQ/L (136-145); THYROID STIMULATING HORMONE 0.746 uIU/ML (0.358-3.740); TOTAL PROTEIN 6.8 GM/DL (6.4-8.2); TROPONIN I < 0.02 NG/ML (< 0.10)
[2018-03-20] MEDS: PENICILLIN V POTASSIUM 500 MG TAB PO (13:07)
== END 2018-03-20 13:15 | disposition home or self-care (01) ==
LOC: M ED 10:41
DX: B37.0 Candidal stomatitis (principal); J02.9 Acute pharyngitis, unspecified; C90.00 Multiple myeloma not having achieved remission; K21.9 Gastro-esophageal reflux disease without esophagitis; I10 Essential (primary) hypertension; F32.9 Major depressive disorder, single episode, unspecified; Z79.899 Other long term (current) drug therapy; Z79.82 Long term (current) use of aspirin
CPT/HCPCS: 71045

== ENCOUNTER 2018-04-09 12:26 | Outpatient (RCR) | payer MEDICARE ==
[~2018-04-09 12:26] MED LIST changes: +NYST50SS PO; +PENI500T PO; +ZANT300T PO; -ZANT300T9 PO
== END 2018-04-23 ==
LOC: M ST 12:26
PROVIDERS: ATTEND Student in an Organized Health Care Education/Training Program
DX: G20 Parkinson's disease (principal); C90.00 Multiple myeloma not having achieved remission; R47.1 Dysarthria and anarthria
CPT/HCPCS: 92507; G9171; G9172

== ENCOUNTER 2018-05-21 13:30 | Outpatient (RCR) | payer MEDICARE ==
[~2018-05-21 13:30] MED LIST changes: -ZANT300T PO; +ZANT300T9 PO
== END 2018-05-24 ==
LOC: M ST 13:30
PROVIDERS: ATTEND Student in an Organized Health Care Education/Training Program
DX: C90.00 Multiple myeloma not having achieved remission (principal); G20 Parkinson's disease; F34.1 Dysthymic disorder; R47.1 Dysarthria and anarthria

== ENCOUNTER → 2019-07-19 | Outpatient (CLI) | payer MEDICARE ==
[~2019-07-19] MED LIST changes: +ACYC1CAP20 PO; -ACYC200CA PO; +ONDA8TAB10 PO; -ONDA8TAB7 PO; -TRAZ-160 PO; +TRAZ-252 PO; -VITA100T20 PO; +VITA100T51 PO; +VITA500T17 PO; -VITA500T53 PO
--- NOTE | 2019-07-19 10:13 | REP ---
RIGHT SHOULDER SERIES: Three views of the right shoulder are performed. No fracture or dislocation is seen. There is mild to moderate joint space narrowing and spurring at the acromioclavicular and glenohumeral joints. In the right upper lung zone laterally there is a 2.7 cm nodular opacity. Somewhat more inferiorly there is a 2.9 cm nodular opacity. Recommend CT of the chest to further evaluate. IMPRESSION: Degenerative changes of the right shoulder. Two nodular opacities are seen laterally in the right lung. Recommend CT of the chest to further evaluate. Electronically Signed by Lalo Osorio MD 07/19/2019 10:54 A
--- NOTE | 2019-07-19 10:15 | REP ---
LEFT HIP, TWO VIEWS: Two views of the left hip are performed. There is mild joint space narrowing and subchondral sclerosis as well as mild spurring at the hip joint. No fracture or dislocation is seen. There is an old fracture or unfused ossification center at the superior lateral acetabulum. IMPRESSION: Mild degenerative changes. Electronically Signed by Lalo Osorio MD 07/19/2019 10:54 A
== END ==
LOC: M CLY 08:53
PROVIDERS: ATTEND Internal Medicine
DX: M25.552 Pain in left hip (principal); C90.01 Multiple myeloma in remission; M17.12 Unilateral primary osteoarthritis, left knee; R91.8 Other nonspecific abnormal finding of lung field; M19.011 Primary osteoarthritis, right shoulder

== ENCOUNTER → 2019-07-22 | Outpatient (REF) | payer MEDICARE ==
[2019-07-22 11:43] LABS: THYROID STIMULATING HORMONE 1.4 uIU/ML (0.358-3.740)
== END ==
LOC: M LABDRAWC 11:11
PROVIDERS: ATTEND Student in an Organized Health Care Education/Training Program
DX: R41.89 Other symptoms and signs involving cognitive functions and awareness (principal); G25.81 Restless legs syndrome; G20 Parkinson's disease; E53.8 Deficiency of other specified B group vitamins; Z79.899 Other long term (current) drug therapy; R53.83 Other fatigue; C90.21 Extramedullary plasmacytoma in remission; F34.1 Dysthymic disorder

== ENCOUNTER → 2019-07-23 | Outpatient (CLI) | payer MEDICARE ==
--- NOTE | 2019-07-23 14:10 | REP ---
Mediastinum and pulmonary valeria are essentially unchanged. There is no evidence of a mass or adenopathy. There are no pleural or pericardial effusions. There is no significant change in appearance of the imaged upper abdomen. Evaluation of the osseous structures again shows numerable predominantly lytic lesions throughout the spine. There is also evidence of tiny potential lytic lesions seen in multiple ribs. Evaluation of the lung welsh shows numerable pleural-based soft tissue masses and representing a change from the prior exam. In addition, there is a pleural-based soft tissue mass the same in each of the upper lobes which appears to be causing underlying rib destruction particularly involving the left third rib and possibly the right 2nd rib. This also represents a change from the prior exam. An additional soft tissue destructive lesion is suspected involving the right 8th rib. There is also a new lytic lesion involving the distal head of the right clavicle. Scattered asymmetric and patchy opacities are again seen throughout the lung welsh but some of these have improved particularly in the lung bases. There is cylindrical bronchiectasis. IMPRESSION: 1. There are multiple lytic lesions as described above consistent with the patient's history of multiple myeloma. In addition, there are new pleural-based soft tissue masses as described above suggestive of extramedullary plasmocytomas. 2. There are some chronic changes seen involving the imaged upper abdomen, which appears stable. 3. There are some chronic lung field changes, some of which have improved compared to the prior exam as described above. Electronically Signed by Guero Zayas DO 07/23/2019 03:08 P
== END ==
LOC: M RAD 12:34
PROVIDERS: ATTEND Internal Medicine
DX: R91.8 Other nonspecific abnormal finding of lung field (principal)

== ENCOUNTER → 2019-08-20 | Outpatient (CLI) | payer MEDICARE ==
[~2019-08-20] MED LIST changes: +KLON0.5T PO; +PERC5TAB12 PO; +SENO8.6T10 PO; +ZOLO50TA PO
--- NOTE | 2019-08-22 10:30 | RADONC ---
RADIATION ONCOLOGY CONSULTATION NOTE DATE: 08/20/2019 This is a telemedicine visit. The patient was informed of the risks including security breech, technological failure, inability to perform a comprehensive physical exam which could delay or prevent an accurate diagnosis, and potential complications from treatment decisions rendered over a telemedicine platform. The patient understands and consented to the use of telehealth services phone only. CHART NUMBER: [id number] DIAGNOSIS: Multiple myeloma. 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 HISTORY OF PRESENT ILLNESS: The patient was in his usual state of health and has a long history of Parkinson disease. Apparently, he was found to have multiple myeloma on May 15, 2017. He has generally done well and has been treated with the Revlimid, Velcade, and Decadron. He had been seen at [facility] and treated by Dr. Briones. He then developed difficulties with his drug regimen and was started on Kyprolis in combination with Cytoxan and Decadron. Again, he developed some difficulties and was subsequently seen at the [facility] with Dr. Jordon Morgan. In December 2017, he was started on daratumumab. He did continue to progress and is now complaining of pain over his left pelvis, right shoulder, and right ribs and is presenting to me for consideration of palliative radiation therapy to those areas. PAST MEDICAL HISTORY: The patient's past medical history is positive for anxiety, depression, hypertension, Parkinson, pneumonia in April 2017, restless leg syndrome, and vitamin D deficiency. He has had a tonsillectomy in the past and has had multiple abdominal abscesses. ALLERGIES: The patient has NO KNOWN DRUG ALLERGIES. SOCIAL HISTORY: The patient does not smoke cigarettes. He drinks alcohol socially. FAMILY HISTORY: The patient's family history is positive for a father with non-Hodgkin's lymphoma. He also has a nephew with leukemia. REVIEW OF SYSTEMS: The patient's review of systems is positive for the bone pain as listed above. He also has tremors from Parkinson. It is otherwise generally noncontributory. Other than his neurological problems from Parkinson and his bone pain, his review of systems is otherwise noncontributory. He denies nausea, vomiting, fevers, chills, night sweats, diplopia, headaches, chest pain, urinary or bowel difficulties. PHYSICAL EXAMINATION: Physical exam was deferred at this time for COVID-19 precautions as this was a telephone consultation. ASSESSMENT: Clearly the patient is a candidate for palliative radiation therapy and I have so informed him. I have discussed with the patient in detail the potential benefits as well as possible acute and chronic sequelae of external beam radiation therapy. We discussed logistics of treatment planning, simulation subsequent and fractionated daily radiation treatments. I am scheduling the patient for the next available simulation slot and radiation treatments will begin subsequently. Thank you for allowing us to participate in the care of this very pleasant gentleman. If I could be of any further assistance or provide you with any information, please feel free to contact me at anytime. As always, warm regards. cc: MD Elieco Cruz MD Frank Rhode, MD
== END ==
LOC: M ONCR 14:05
PROVIDERS: ATTEND Radiology Radiation Oncology
DX: C90.00 Multiple myeloma not having achieved remission (principal)

== ENCOUNTER → 2019-08-22 | Outpatient (RCR) | payer MEDICARE | LOC: M ONCR 10:19 | PROVIDERS: ATTEND Radiology Radiation Oncology | DX: C90.00 Multiple myeloma not having achieved remission (principal) ==

== ENCOUNTER 2019-09-04 14:26 | Inpatient (IN) | payer MEDICARE ==
[~2019-09-04] VITALS: Ht 190.5 cm; Wt 81.5 kg
[~2019-09-04 14:26] MED LIST changes: +ASPI-546 PO; -ASPI1TAB15 PO; +HYDR-3490 PO; -HYDR25TAB PO
[2019-09-04] MEDS ORDERED: PERCOCET 5MG/325MG TAB PO ONE (15:45)
[2019-09-04] MEDS ORDERED: SINEMET 25-100 MG TAB PO SCH (16:00)
[2019-09-04 16:32] LABS: HEMATOCRIT 35.7 % (42.0-52.0); HEMOGLOBIN 12.1 g/dl (13.5-17.5); MEAN CORPUSCULAR HEMOGLOBIN 31.8 pg (27.0-33.0); MEAN CORPUSCULAR HGB CONC 33.9 g/dl (32.0-36.5); MEAN CORPUSCULAR VOLUME 93.9 fl (80.0-96.0); PLATELET COUNT, AUTOMATED 148 10^3/uL (150-450); WHITE BLOOD COUNT 7.6 10^3/uL (4.0-10.0)
[2019-09-04 16:47] LABS: ALBUMIN 3.5 GM/DL (3.2-5.2); ALT/SGPT 10 U/L (12-78); BILIRUBIN,TOTAL 0.6 MG/DL (0.2-1.0); BLOOD UREA NITROGEN 31 MG/DL (7-18); CALCIUM LEVEL 8.3 MG/DL (8.8-10.2); CARBON DIOXIDE LEVEL 30 MEQ/L (21-32); CHLORIDE LEVEL 102 MEQ/L (98-107); CREATININE FOR GFR 0.73 MG/DL (0.70-1.30); GLOMERULAR FILTRATION RATE > 60.0 (>49); GLUCOSE, FASTING 111 MG/DL (70-100); POTASSIUM SERUM 3.2 MEQ/L (3.5-5.1); SODIUM LEVEL 137 MEQ/L (136-145); TOTAL PROTEIN 7.2 GM/DL (6.4-8.2)
[2019-09-04] MEDS ORDERED: POTASSIUM CHLORIDE 10 MEQ SR TABLET PO ONE ×2 (17:00→21:00)
--- NOTE | 2019-09-04 17:36 | REP ---
PELVIS AND BILATERAL HIPS: AP view of the pelvis and AP and frogleg views of bilateral hips performed. No acute fracture or dislocation is seen. There is mild degenerative change at each hip joint with mild joint space narrowing and subchondral sclerosis. There is also mild narrowing and sclerosis at the sacroiliac joints, and there are degenerative changes of the lower lumbar spine. IMPRESSION: Degenerative changes without evidence of fracture or dislocation. Electronically Signed by Lalo Osorio MD 09/05/2019 12:54 P
--- NOTE | 2019-09-04 17:40 | REP ---
CT BRAIN WITHOUT CONTRAST: HISTORY: History of a fall. Distracting injury. Comparison head CT study, March 20, 2018. CT FINDINGS: Preliminary digital mineral technologist radiograph is unremarkable. Bone window settings demonstrate no evidence of skull fracture or bony destructive lesion. Visualized paranasal sinuses are clear. No intraorbital abnormality is appreciated. No scalp hematoma is appreciated. There is no evidence of intracranial hemorrhage. Osorio-white differentiation pattern is normal above and below the tentorium. No extra-axial fluid collection is seen. No mass, infarction, or midline shift is appreciated. IMPRESSION: Unremarkable CT study of the brain. No acute intracranial abnormality. Electronically Signed by Alexander Rodriguez MD 09/04/2019 07:38 P
--- NOTE | 2019-09-04 17:40 | REPVR ---
PROCEDURE INFORMATION: Exam: CT Pelvis Without Contrast; Skeletal Exam date and time: 09/04/2019 5:03 PM Age: 69 years old Clinical indication: Hip pain; Left hip; Additional info: HX of falls, l-hip pain TECHNIQUE: Imaging protocol: Computed tomography images of the pelvis without contrast. Exam focused on the skeletal structures. Radiation optimization: All CT scans at this facility use at least one of these dose optimization techniques: automated exposure control; mA and/or kV adjustment per patient size (includes targeted exams where dose is matched to clinical indication); or iterative reconstruction. COMPARISON: CT PELVIS W/O CONTRAST - OUTSIDE PRIOR 08/12/2019 11:24 AM FINDINGS: Stomach and bowel: [id number] stool burden throughout the partially visualized colon. Bones/joints: Several fractures to the left iliac crest through areas of both sclerotic and lytic lesions. Diffuse sclerotic and lytic lesions are present throughout visualized bones, concerning for osseous metastatic disease. Soft tissues: Asymmetric enlargement of the left iliacus muscle. Asymmetric enlargement of the left psoas muscle. Several pathologically enlarged left iliac and left pelvic lymph nodes, largest definitively visualized lymph node measuring 2.6 cm. IMPRESSION: 1. Several acute fractures of the left iliac crest, presumed pathologic fractures given additional presence of sclerotic and lytic lesions throughout visualized bones. Findings concerning for osseous metastatic disease. 2. Asymmetric enlargement of the left psoas muscle, possibly pseudo enlargement due to adjacent enlarged left iliac and pelvic lymph nodes. Presence of enlarged lymph nodes is concerning for metastatic disease, potentially prostate origin. 3. Asymmetric enlargement of the left iliacus muscle is concerning for intramuscular hematoma in the setting of trauma. Electronically signed by: Mehul Matamoros On 09/04/2019 17:39:36 PM
[2019-09-04] MEDS ORDERED: KETOROLAC 30 MG/ML 1ML VIAL IV ONE (18:00)
[2019-09-04] MEDS ORDERED: MORPHINE 2 MG/ML 1ML VIAL (J2270) IV PRN ×2 (18:15→19:00)
[2019-09-04] MEDS ORDERED: PHILCAP4 PO (18:42)
[2019-09-04] MEDS ORDERED: MELA10CA PO (18:42)
[2019-09-04] MEDS ORDERED: AMIT150T PO (18:43)
[2019-09-04] MEDS ORDERED: LOSA50TA88 PO (18:43)
[2019-09-04] MEDS ORDERED: DEXA4TA PO (18:45)
--- NOTE | 2019-09-04 19:25 | HPEPDOC ---
[facility] Medical History & Physical Date of Admission September 04, 2019 Date of Service: September 04, 2019 Primary Care Physician: Jason Welch Attending Physician: VAUGHN MCPHERSON MD History and Physical CHIEF COMPLAINT: falls, confusion HISTORY OF PRESENT ILLNESS: Yousif Rincon is a 69 YO M with history of Parkinsons Disease and Multiple Myeloma (currently undergoing radiation and chemotherapy) who presents with worsening weakness, confusions and falls over the past 3 days. The patient is a poor historian due to his recent memory issues. He states that he was just started on a new chemotherapy medicine 3 days ago and since this started he has been confused, slurring his words, unstable on his feet and has fallen several times at home. His also has noted he has been more confused. He does not remember how he fell most of those times. What he remembers is waking up on the floor and his mentioned today that she is no longer able to take care of him and that she would like for him to be evaluated. In the ED he is complaining of left hip pain that is radiating down his left leg. He is unable to walk very far and feels very unstable on his feet. PAST MEDICAL HISTORY: IgG Multiple Myeloma (currently undergoing palliative radiation therapy and Daratumumab) Parkinsons disease. Essential hypertension. Restless leg. Vitamin B12 deficiency. Dysthymia. PAST SURGICAL HISTORY: tonsillectomy childhood Incision and drainage of abdominal abcess (related to infected chickenpox lesion) age 6 Colonoscopy 05/2001 Colonoscopy--suboptimal prep 05/2012 Colonoscopy-- suboptimal prep 02/2016 SOCIAL HISTORY: nonsmoker drinks 1 drink/night beer/wine No other illicit drugs FAMILY HISTORY: Father devloped prostate cancer at 82, of lymphoma at age 95. \\nMother\\ntwo brothers, one child are healthy except one brother has intention tremor. ALLERGIES: Please see below. REVIEW OF SYSTEMS: CONSTITUTIONAL: Reports recent weight loss, feels "frail", Frequent falls EYES: Denies visual changes, double vision, blurry vision, floaters, or feeling like a curtain pulled down. ENT: Denies runny nose, epistaxis, sinus pain, tinnitus, sore throat, or odynophasia CARDIOVASCULAR: Denies chest pain, shortness of breath, paroxysmal nocturnal dyspnea, orthopnea, edema, or palpitations. RESPIRATORY: Denies cough, sputum production, wheezes, hemoptysis, or shortness of breath GASTROINTESTINAL: Denies abdominal pain, difficulty swallowing, loss of appetite, nausea, vomiting, diarrhea, constipation, eructation, obstipation, hematemesis, hematochezia, melena, or tenesmus GENITOURINARY: Denies hematuria, polyuria, dysuria, hesitancy, or dribbling MSK: Reports hip pain INTEGUMENTARY: Denies pruritus, rashes, or lesions NEUROLOGY: Denies any changes to sight/smell/hearing/taste, seizures, faint, headaches, paresthesias, anesthesias PSYCHIATRIC: Denies depression, anxiety, paranoia, anhedonia, or episodes of enma ENDOCRINE: Denies diarrhea, increased appetite, tremor, palpitations, constipation, dry skin, polydipsia, polyuria, polyphagia HEMATOLOGIC: Denies any anemia, purpura, or petechiae LYMPHATIC: Denies any new lumps or bumps anywhere HOME MEDICATIONS: Please see below. PHYSICAL EXAMINATION: VITAL SIGNS: Please see below. GENERAL APPEARANCE: Laying in bed, appears very cachectic, no acute distress, calm, cooperative, very tremulous HEENT: EOMI, PERRLA, neck is supple with no thyromegaly or lymphadenopathy RESPIRATORY: Lungs are clear to auscultation bilaterally with no adventitious breath sounds appreciated CARDIOVASCULAR: no JVD, RRR, no murmurs/rubs/gallops, normal S1 and S2 ABDOMEN: +BS, soft, nontender to palpation in all four quadrants, no masses/organomegaly EXTREMITIES: no clubbing, cyanosis or edema noted MSK: Left hip exquisitely tender to palpation, strength 0/5 due to pain; legs are of equal length NEUROLOGICAL: CN 2-12 intact, No obvious focal deficits, very tremulous PSYCHIATRIC: normal mood/affect Skin: No rashes or ulcers appreciated, warm and well-perfused LN: No significant cervical or inguinal lymphadenopathy LABORATORY DATA: See below. IMAGING: PELVIS AND BILATERAL HIPS: AP view of the pelvis and AP and frogleg views of bilateral hips performed. No acute fracture or dislocation is seen. There is mild degenerative change at each hip joint with mild joint space narrowing and subchondral sclerosis. There is also mild narrowing and sclerosis at the sacroiliac joints, and there are degenerative changes of the lower lumbar spine. IMPRESSION: Degenerative changes without evidence of fracture or dislocation. CT BRAIN WITHOUT CONTRAST: HISTORY: History of a fall. Distracting injury. Comparison head CT study, March 20, 2018. CT FINDINGS: Preliminary digital training project manager radiograph is unremarkable. Bone window settings demonstrate no evidence of skull fracture or bony destructive lesion. Visualized paranasal sinuses are clear. No intraorbital abnormality is appreciated. No scalp hematoma is appreciated. There is no evidence of intracranial hemorrhage. Osorio-white differentiation pattern is normal above and below the tentorium. No extra-axial fluid collection is seen. No mass, infarction, or midline shift is appreciated. IMPRESSION: Unremarkable CT study of the brain. No acute intracranial abnormality. CT PELVIS W/O CONTRAST - OUTSIDE PRIOR 08/12/2019 11:24 AM FINDINGS: Stomach and bowel: [id number] stool burden throughout the partially visualized colon. Bones/joints: Several fractures to the left iliac crest through areas of both sclerotic and lytic lesions. Diffuse sclerotic and lytic lesions are present throughout visualized bones, concerning for osseous metastatic disease. Soft tissues: Asymmetric enlargement of the left iliacus muscle. Asymmetric enlargement of the left psoas muscle. Several pathologically enlarged left iliac and left pelvic lymph nodes, largest definitively visualized lymph node measuring 2.6 cm. IMPRESSION: 1. Several acute fractures of the left iliac crest, presumed pathologic fractures given additional presence of sclerotic and lytic lesions throughout visualized bones. Findings concerning for osseous metastatic disease. 2. Asymmetric enlargement of the left psoas muscle, possibly pseudo enlargement due to adjacent enlarged left iliac and pelvic lymph nodes. Presence of enlarged lymph nodes is concerning for metastatic disease, potentially prostate origin. 3. Asymmetric enlargement of the left iliacus muscle is concerning for intramuscular hematoma in the setting of trauma. MICROBIOLOGY: Please see below. ASSESSMENT: This is a 69 YO M with history of Parkinson's disease and multiple myeloma who presents with worsening confusion, weakness, frequent falls found to have several acute pathologic fractures of his pelvis. He will be admitted for pain management. PLAN: 1. Pathologic hip fractures: likely secondary to worsened disease. Per EMR, this has been a known sequelae of disease and he has yet to be radiated for it -Will contact Dr. Lal in the AM regarding plan of treatment -Pain management with IV Toradol, Morphine 2mg Q6H + Percocet. Can increase frequency if needed -Will hold off on PT/OT for now and immobilize pelvis -Bedrest for now 2. Parkinson's disease: autonomic insufficiency may be cause of frequent falls -Continue home Carbidopa/levodopa, Selegiline 3. Multiple myeloma widely metastatic with pathologic fractures: -Will contact Dr. Lal in the AM -Patient receives Oncology care in [place]. Will obtain records in AM 4. Mood disorder: -Continue Trazodone, Sertraline 5. HTN: -Continue Chlorthalidone 6. Electrolyte abnormalities: -Patient found to be hypokalemic in ED, given 40mEq K x 2. Will recheck electrolytes in AM DVT Ppx: SQH DISPO: pending clinical improvement Attending attestation: I evaluated and examined the patient in person; I discussed the care with Resident in detail and agree with the plan above. Vital Signs Vital Signs Date Time Temp Pulse Resp B/P (MAP) Pulse Ox O2 Delivery O2 Flow Rate FiO2 09/04/19 16:45 18 09/04/19 15:06 83 108/61 (77) 95 Room Air 09/04/19 15:01 98.4 Laboratory Data Labs 24H Laboratory Tests 2 09/04/19 16:01: Urine Color YELLOW, Urine Appearance CLEAR, Urine pH 5.0, Urine Specific [place] 1.026, Urine Protein NEGATIVE, Urine Glucose (UA) NEGATIVE, Urine Ketones TRACEH, Urine Blood NEGATIVE, Urine Nitrite NEGATIVE, Urine Bilirubin NEGATIVE, Urine Urobilinogen 2.0H, Urine Leukocyte Esterase NEGATIVE, Urine WBC (Auto) 1, Urine RBC (Auto) 1, Urine Hyaline Casts (Auto) 0, Urine Bacteria (Auto) NEGATIVE, Urine Squamous Epithelial Cells 0, Urine Mucus (Auto) SMALL, Urine Sperm (Auto) 09/04/19 16:16: Nucleated Red Blood Cells % (auto) 0.0, Anion Gap 5L, Glomerular Filtration Rate > 60.0, Calcium Level 8.3L, Total Bilirubin 0.6, Aspartate Amino Transf (A ST/SGOT) 13, Alanine Aminotransferase (ALT/SGPT) 10L, Alkaline Phosphatase 86, Total Protein 7.2, Albumin 3.5, Albumin/Globulin Ratio 0.95L CBC/BMP Laboratory Tests 09/04/19 16:16 Home Medications Scheduled Acyclovir (Acyclovir) 400 Mg Tab, 400 MG PO BID Amitriptyline HCl (Amitriptyline HCl) 150 Mg Tablet, 150 MG PO QHS Aspirin (Aspirin EC) 81 Mg Tab, 81 MG PO DAILY Carbidopa/Levodopa (Carbidopa-Levo ER 25-100 Tab) 1 Tab Tabcr, 2 TAB PO QHS TAKES WITH IR TABLET Carbidopa/Levodopa (Carbidopa-Levodopa 25-100 Tab) 1 Tab Tab, 2 TAB PO QID 0700, 1200, 1700, 2000 Carbidopa/Levodopa (Carbidopa-Levodopa 25-100 Tab) 1 Tab Tab, 1 TAB PO QHS TAKES WITH ER TABLET Chlorthalidone (Chlorthalidone) 25 Mg Tab, 12.5 MG PO 3XW MON/MON/MON Cyanocobalamin (Vitamin B-12) (Vitamin B-12) 100 Mcg Tab, 100 MCG PO DAILY TAKES AT NOON Dexamethasone (Dexamethasone) 4 Mg Tablet, 40 MG PO QWEEK MONDAYS Losartan Potassium (Losartan Potassium) 50 Mg Tablet, 50 MG PO DAILY Melatonin (Melatonin) 10 Mg Capsule, 10 MG PO QHS Selegiline HCl (Selegiline HCl) 5 Mg Cap, 5 MG PO DAILY Sennosides/Docusate Sodium (Senokot-S Tablet) 1 Each Tablet, 1 TAB PO QHS Sertraline Hcl (Zoloft) 50 Mg Tablet, 50 MG PO DAILY Trazodone HCl (Trazodone HCl) 50 Mg Tab, 100 MG PO QHS l Gasseri/B Bifidum/B Longum (Heyo Colon Health Capsule) 1 Each Capsule, 1 CAP PO DAILY Scheduled PRN Acetaminophen (Acetaminophen) 500 Mg Tab, 500 MG PO Q6H PRN for PAIN Oxycodone HCl/Acetaminophen (Percocet 5-325 mg Tablet) 1 Each Tablet, 1 TAB PO Q4H PRN for PAIN MAY TAKE ONE TO TWO TABS Polyethylene Glycol 3350 (Miralax) 1 Pow Pow, 17 GM PO DAILY PRN for CONSTIPATION Allergies Coded Allergies: diphenhydramine (Verified Adverse Reaction, Unknown, EXTREMELY JITTERY, 09/04/19) A-FIB/CHADSVASC A-FIB History Current/History of A-Fib/PAF?: No GME ATTESTATION GME ATTESTATION My faculty preceptor for this patient encounter was physically present during the encounter and was fully available. All aspects of the patient interview, examination, medical decision making process, and medical care plan development were reviewed and approved by the faculty preceptor. The faculty preceptor is aware and concurs with the plan as stated in the body of this note and will attest to such by his/her cosignature. ASHLEY RODRIGES MD September 04, 2019 19:25 VAUGHN MCPHERSON MD September 08, 2019 19:31
[2019-09-04 20:05] VITALS: BP 135/84
[2019-09-04] MEDS ORDERED: PERCOCET 5MG/325MG TAB PO PRN (21:00)
[2019-09-04] MEDS: SINEMET 25-100 MG TAB PO SCH ×2 (22:04→22:05)
[2019-09-04] MEDS: SENOKOT S TAB PO SCH (22:05)
[2019-09-04] MEDS: DOCUSATE SODIUM 100MG CAPSULE PO SCH (22:05)
[2019-09-04] MEDS: traZODone 50 MG TAB PO SCH (22:05)
[2019-09-04] MEDS: RAMELTEON 8 MG TAB (ROZEREM) PO SCH (22:05)
[2019-09-04] MEDS: ACYCLOVIR 200 MG CAPSULE PO SCH (22:06)
[2019-09-04] MEDS: HEPARIN SOD (PORCINE) 5000UNITS/ML 1ML VIAL/SYRINGE SQ SCH (22:07)
[2019-09-04] MEDS: SINEMET**CR** 25/100 TABCR PO SCH (22:07)
[2019-09-04] MEDS: PERCOCET 5MG/325MG TAB PO PRN (22:11)
[2019-09-05] MEDS ORDERED: MOM 30ML SUSPENSION UDC PO PRN (03:30)
[2019-09-05] MEDS: FLEET ENEMA PR PRN (03:41)
[2019-09-05 06:00] VITALS: BP 111/71
[2019-09-05] MEDS: SINEMET 25-100 MG TAB PO SCH ×5 (06:14→21:23)
[2019-09-05 06:24] LABS: HEMATOCRIT 33.1 % (42.0-52.0); HEMOGLOBIN 11.3 g/dl (13.5-17.5); MEAN CORPUSCULAR HEMOGLOBIN 32.2 pg (27.0-33.0); MEAN CORPUSCULAR HGB CONC 34.1 g/dl (32.0-36.5); MEAN CORPUSCULAR VOLUME 94.3 fl (80.0-96.0); PLATELET COUNT, AUTOMATED 136 10^3/uL (150-450); RED BLOOD COUNT 3.51 10^6/uL (4.30-6.10); WHITE BLOOD COUNT 10.8 10^3/uL (4.0-10.0)
[2019-09-05 06:52] LABS: ALBUMIN 3.1 GM/DL (3.2-5.2); ALT/SGPT 8 U/L (12-78); BILIRUBIN,TOTAL 0.7 MG/DL (0.2-1.0); BLOOD UREA NITROGEN 36 MG/DL (7-18); CALCIUM LEVEL 8.1 MG/DL (8.8-10.2); CARBON DIOXIDE LEVEL 28 MEQ/L (21-32); CHLORIDE LEVEL 106 MEQ/L (98-107); CREATININE FOR GFR 0.71 MG/DL (0.70-1.30); GLOMERULAR FILTRATION RATE > 60.0 (>49); GLUCOSE, FASTING 102 MG/DL (70-100); MAGNESIUM LEVEL 2.2 MG/DL (1.8-2.4); POTASSIUM SERUM 3.7 MEQ/L (3.5-5.1); SODIUM LEVEL 140 MEQ/L (136-145); TOTAL PROTEIN 6.6 GM/DL (6.4-8.2)
[2019-09-05] MEDS ORDERED: POTASSIUM CHLORIDE 10 MEQ SR TABLET PO ONE (07:45)
[2019-09-05] MEDS: MOM 30ML SUSPENSION UDC PO SCH ×2 (08:39→11:32)
[2019-09-05] MEDS: DOCUSATE SODIUM 100MG CAPSULE PO SCH ×2 (08:40→21:22)
[2019-09-05] MEDS: SERTRALINE HCL 50 MG TAB PO SCH (08:40)
[2019-09-05] MEDS: LOSARTAN 50MG TABLET PO SCH (08:40)
[2019-09-05] MEDS: ASPIRIN 81 MG ENTERIC TAB PO SCH (08:40)
[2019-09-05] MEDS: ACYCLOVIR 200 MG CAPSULE PO SCH ×2 (08:41→21:23)
[2019-09-05] MEDS: HEPARIN SOD (PORCINE) 5000UNITS/ML 1ML VIAL/SYRINGE SQ SCH ×2 (08:42→21:22)
[2019-09-05] MEDS: PERCOCET 5MG/325MG TAB PO PRN ×2 (08:45→14:53)
[2019-09-05 10:00] VITALS: BP 134/83
--- NOTE | 2019-09-05 11:14 | IPNPDOC ---
Date Seen The patient was seen on 09/05/19. Progress Note SUBJECTIVE: The patient had an issue with constipation overnight. He had a small BM early this morning but still feels very constipated. Otherwise, he wishes to get out of bed but was advised not to, as he has had several falls recently at home. He will go for radiation treatment today with Dr. Lal. The patient wishes to have a conversation with his prior to initiating palliative care or hospice consult. Otherwise, he has no complaints. OBJECTIVE PHYSICAL EXAMINATION: VITAL SIGNS: Please see below. GENERAL APPEARANCE: Laying in bed, appears very cachectic, no acute distress, calm, cooperative, very tremulous HEENT: EOMI, PERRLA, neck is supple with no thyromegaly or lymphadenopathy RESPIRATORY: Lungs are clear to auscultation bilaterally with no adventitious breath sounds appreciated CARDIOVASCULAR: no JVD, RRR, no murmurs/rubs/gallops, normal S1 and S2 ABDOMEN: +BS, soft, nontender to palpation in all four quadrants, no masses/organomegaly EXTREMITIES: no clubbing, cyanosis or edema noted MSK: Left hip tender to palpation, strength 0/5 due to pain; legs are of equal length NEUROLOGICAL: CN 2-12 intact, No obvious focal deficits, very tremulous PSYCHIATRIC: normal mood/affect Skin: No rashes or ulcers appreciated, warm and well-perfused LN: No significant cervical or inguinal lymphadenopathy LABORATORY DATA: See below. IMAGING: PELVIS AND BILATERAL HIPS: AP view of the pelvis and AP and frogleg views of bilateral hips performed. No acute fracture or dislocation is seen. There is mild degenerative change at each hip joint with mild joint space narrowing and subchondral sclerosis. There is also mild narrowing and sclerosis at the sacroiliac joints, and there are degenerative changes of the lower lumbar spine. IMPRESSION: Degenerative changes without evidence of fracture or dislocation. CT BRAIN WITHOUT CONTRAST: HISTORY: History of a fall. Distracting injury. Comparison head CT study, March 20, 2018. CT FINDINGS: Preliminary digital easement worker radiograph is unremarkable. Bone window settings demonstrate no evidence of skull fracture or bony destructive lesion. Visualized paranasal sinuses are clear. No intraorbital abnormality is appreciated. No scalp hematoma is appreciated. There is no evidence of intracranial hemorrhage. Osorio-white differentiation pattern is normal above and below the tentorium. No extra-axial fluid collection is seen. No mass, infarction, or midline shift is appreciated. IMPRESSION: Unremarkable CT study of the brain. No acute intracranial abnormality. CT PELVIS W/O CONTRAST - OUTSIDE PRIOR 08/12/2019 11:24 AM FINDINGS: Stomach and bowel: [id number] stool burden throughout the partially visualized colon. Bones/joints: Several fractures to the left iliac crest through areas of both sclerotic and lytic lesions. Diffuse sclerotic and lytic lesions are present throughout visualized bones, concerning for osseous metastatic disease. Soft tissues: Asymmetric enlargement of the left iliacus muscle. Asymmetric enlargement of the left psoas muscle. Several pathologically enlarged left iliac and left pelvic lymph nodes, largest definitively visualized lymph node measuring 2.6 cm. IMPRESSION: 1. Several acute fractures of the left iliac crest, presumed pathologic fractures given additional presence of sclerotic and lytic lesions throughout visualized bones. Findings concerning for osseous metastatic disease. 2. Asymmetric enlargement of the left psoas muscle, possibly pseudo enlargement due to adjacent enlarged left iliac and pelvic lymph nodes. Presence of enlarged lymph nodes is concerning for metastatic disease, potentially prostate origin. 3. Asymmetric enlargement of the left iliacus muscle is concerning for intramuscular hematoma in the setting of trauma. MICROBIOLOGY: Please see below. ASSESSMENT: This is a 69 YO M with history of Parkinson's disease and multiple myeloma who presents with worsening confusion, weakness, frequent falls found to have several acute pathologic fractures of his pelvis. He will be admitted for pain management. PLAN: 1. Pathologic hip fractures: likely secondary to worsened disease. Per EMR, this has been a known sequelae of disease -Patient will go for radiation treatment this AM -Pain management with IV Toradol, Morphine 2mg Q6H + Percocet. Can increase frequency if needed -Will hold off on PT/OT for now and immobilize pelvis -Bedrest for now 2. Parkinson's disease: autonomic insufficiency may be cause of frequent falls -Continue home Carbidopa/levodopa -Selegiline not on hospital formulary. Notified patient's that it will need to be brought to the hospital 3. 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 Eliceo Booth in [place] (Oncology), ongoing treatment with Daratumumab, Bortezomib, Decadron. Was last seen for treatment on 08/05/19. -Palliative care consult in place. Patient wishes to speak with his regarding plans at this point in time. Per my conversation with Dr. aLl and per Oncology notes, the patient is appropriate for hospice consult given poor prognosis and widely metastatic disease 4. Mood disorder: -Continue Trazodone, Sertraline 5. HTN: -Continue Chlorthalidone 6. Electrolyte abnormalities: -given 40MEQ K this AM DVT Ppx: SQH DISPO: pending clinical improvement Attending attestation: I evaluated and examined the patient in person; I discussed the care with Resident in detail and agree with the plan above. VS, I&O, 24H, Fishbone Vital Signs/I&O Vital Signs Date Time Temp Pulse Resp B/P (MAP) Pulse Ox O2 Delivery O2 Flow Rate FiO2 09/05/19 10:00 97.4 90 18 134/83 (100) 97 Room Air I&O- Last 24 Hours up to 6 AM 09/05/19 06:00 Intake Total 720 ml Output Total 200 ml Balance 520 ml Laboratory Data 24H LABS Laboratory Tests 2 09/04/19 16:01: Urine Color YELLOW, Urine Appearance CLEAR, Urine pH 5.0, Urine Specific [place] 1.026, Urine Protein NEGATIVE, Urine Glucose (UA) NEGATIVE, Urine Ketones TRACEH, Urine Blood NEGATIVE, Urine Nitrite NEGATIVE, Urine Bilirubin NEGATIVE, Urine Urobilinogen 2.0H, Urine Leukocyte Esterase NEGATIVE, Urine WBC (Auto) 1, Urine RBC (Auto) 1, Urine Hyaline Casts (Auto) 0, Urine Bacteria (Auto) NEGATIVE, Urine Squamous Epithelial Cells 0, Urine Mucus (Auto) SMALL, Urine Sperm (Auto) 09/04/19 16:16: Nucleated Red Blood Cells % (auto) 0.0, Anion Gap 5L, Glomerular Filtration Rate > 60.0, Calcium Level 8.3L, Total Bilirubin 0.6, Aspartate Amino Transf (AST/SGOT) 13, Alanine Aminotransferase (ALT/SGPT) 10L, Alkaline Phosphatase 86, Total Protein 7.2, Albumin 3.5, Albumin/Globulin Ratio 0.95L 09/05/19 05:46: Nucleated Red Blood Cells % (auto) 0.0, Anion Gap 6L, Glomerular Filtration Rate > 60.0, Calcium Level 8.1L, Total Bilirubin 0.7, Aspartate Amino Transf (AST/SGOT) 12, Alanine Aminotransferase (ALT/SGPT) 8L, Alkaline Phosphatase 75, Total Protein 6.6, Albumin 3.1L, Albumin/Globulin Ratio 0.89L, Magnesium Level 2.2 CBC/BMP Laboratory Tests 09/04/19 16:16 09/05/19 05:46 GME ATTESTATION GME ATTESTATION My faculty preceptor for this patient encounter was physically present during the encounter and was fully available. All aspects of the patient interview, examination, medical decision making process, and medical care plan development were reviewed and approved by the faculty preceptor. The faculty preceptor is aware and concurs with the plan as stated in the body of this note and will attest to such by his/her cosignature. ASHLEY RODRIGES MD September 05, 2019 11:14 VAUGHN MCPHERSON MD September 08, 2019 19:33
[2019-09-05 14:00] VITALS: BP 130/81
[2019-09-05] MEDS: MIRALAX *UNIT DOSE* 17GM PACKET PO PRN (17:14)
[2019-09-05 20:00] VITALS: BP 155/89
[2019-09-05] MEDS: SINEMET**CR** 25/100 TABCR PO SCH (21:22)
[2019-09-05] MEDS: LORazepam 2 MG TAB PO PRN (21:22)
[2019-09-05] MEDS: traZODone 50 MG TAB PO SCH (21:22)
[2019-09-05] MEDS: SENOKOT S TAB PO SCH (21:22)
[2019-09-05] MEDS: RAMELTEON 8 MG TAB (ROZEREM) PO SCH (21:23)
[2019-09-06 04:13] VITALS: BP 121/70
[2019-09-06 06:15] LABS: HEMATOCRIT 36.3 % (42.0-52.0); HEMOGLOBIN 12.4 g/dl (13.5-17.5); MEAN CORPUSCULAR HEMOGLOBIN 32.7 pg (27.0-33.0); MEAN CORPUSCULAR HGB CONC 34.2 g/dl (32.0-36.5); MEAN CORPUSCULAR VOLUME 95.8 fl (80.0-96.0); PLATELET COUNT, AUTOMATED 151 10^3/uL (150-450); RED BLOOD COUNT 3.79 10^6/uL (4.30-6.10); WHITE BLOOD COUNT 7.4 10^3/uL (4.0-10.0)
[2019-09-06] MEDS: PERCOCET 5MG/325MG TAB PO PRN ×2 (06:32→16:48)
[2019-09-06] MEDS: SINEMET 25-100 MG TAB PO SCH ×5 (06:32→20:08)
[2019-09-06 06:42] LABS: ALBUMIN 3.1 GM/DL (3.2-5.2); ALT/SGPT 7 U/L (12-78); BILIRUBIN,TOTAL 0.9 MG/DL (0.2-1.0); BLOOD UREA NITROGEN 22 MG/DL (7-18); CALCIUM LEVEL 7.9 MG/DL (8.8-10.2); CARBON DIOXIDE LEVEL 29 MEQ/L (21-32); CHLORIDE LEVEL 103 MEQ/L (98-107); CREATININE FOR GFR 0.57 MG/DL (0.70-1.30); GLOMERULAR FILTRATION RATE > 60.0 (>49); GLUCOSE, FASTING 92 MG/DL (70-100); POTASSIUM SERUM 3.7 MEQ/L (3.5-5.1); SODIUM LEVEL 137 MEQ/L (136-145); TOTAL PROTEIN 6.9 GM/DL (6.4-8.2)
[2019-09-06] MEDS ORDERED: CHLORTHALIDONE 25 MG TAB PO SCH (09:00)
[2019-09-06] MEDS: HEPARIN SOD (PORCINE) 5000UNITS/ML 1ML VIAL/SYRINGE SQ SCH ×2 (09:24→20:07)
[2019-09-06] MEDS: ACYCLOVIR 200 MG CAPSULE PO SCH ×2 (09:24→20:09)
[2019-09-06] MEDS: ASPIRIN 81 MG ENTERIC TAB PO SCH (09:24)
[2019-09-06] MEDS: MOM 30ML SUSPENSION UDC PO SCH (09:24)
[2019-09-06] MEDS ORDERED: CHLORTHALIDONE 12.5MG PER 1/2 TABLET PO SCH (09:25)
[2019-09-06] MEDS: SERTRALINE HCL 50 MG TAB PO SCH (09:26)
[2019-09-06] MEDS: LOSARTAN 50MG TABLET PO SCH (09:26)
[2019-09-06] MEDS: DOCUSATE SODIUM 100MG CAPSULE PO SCH ×2 (09:26→20:07)
[2019-09-06] MEDS: CHLORTHALIDONE 12.5MG PER 1/2 TABLET PO SCH (11:06)
[2019-09-06] MEDS: LORazepam 2 MG TAB PO PRN (13:54)
[2019-09-06 14:00] VITALS: BP 145/88
--- NOTE | 2019-09-06 15:36 | IPNPDOC ---
Date Seen The patient was seen on 09/06/19. Progress Note SUBJECTIVE: The patient had an issue with anxiety overnight and was given Ativan. He is calm this morning. He went for radiation treatment as well. Pain is well-managed. Patient states he would like more time to think about hospice/palliative care. OBJECTIVE PHYSICAL EXAMINATION: VITAL SIGNS: Please see below. GENERAL APPEARANCE: Laying in bed, appears very cachectic, no acute distress, calm, cooperative, very tremulous HEENT: EOMI, PERRLA, neck is supple with no thyromegaly or lymphadenopathy RESPIRATORY: Lungs are clear to auscultation bilaterally with no adventitious breath sounds appreciated CARDIOVASCULAR: no JVD, RRR, no murmurs/rubs/gallops, normal S1 and S2 ABDOMEN: +BS, soft, nontender to palpation in all four quadrants, no masses/organomegaly EXTREMITIES: no clubbing, cyanosis or edema noted MSK: Left hip tender to palpation, strength 0/5 due to pain; legs are of equal l ength NEUROLOGICAL: CN 2-12 intact, No obvious focal deficits, very tremulous PSYCHIATRIC: normal mood/affect Skin: No rashes or ulcers appreciated, warm and well-perfused LN: No significant cervical or inguinal lymphadenopathy LABORATORY DATA: See below. IMAGING: PELVIS AND BILATERAL HIPS: AP view of the pelvis and AP and frogleg views of bilateral hips performed. No acute fracture or dislocation is seen. There is mild degenerative change at each hip joint with mild joint space narrowing and subchondral sclerosis. There is also mild narrowing and sclerosis at the sacroiliac joints, and there are degenerative changes of the lower lumbar spine. IMPRESSION: Degenerative changes without evidence of fracture or dislocation. CT BRAIN WITHOUT CONTRAST: HISTORY: History of a fall. Distracting injury. Comparison head CT study, March 20, 2018. CT FINDINGS: Preliminary digital transcript evaluator radiograph is unremarkable. Bone window settings demonstrate no evidence of skull fracture or bony destructive lesion. Visualized paranasal sinuses are clear. No intraorbital abnormality is appreciated. No scalp hematoma is appreciated. There is no evidence of intracranial hemorrhage. Osorio-white differentiation pattern is normal above and below the tentorium. No extra-axial fluid collection is seen. No mass, infarction, or midline shift is appreciated. IMPRESSION: Unremarkable CT study of the brain. No acute intracranial abnormality. CT PELVIS W/O CONTRAST - OUTSIDE PRIOR 08/12/2019 11:24 AM FINDINGS: Stomach and bowel: [id number] stool burden throughout the partially visualized colon. Bones/joints: Several fractures to the left iliac crest through areas of both sclerotic and lytic lesions. Diffuse sclerotic and lytic lesions are present throughout visualized bones, concerning for osseous metastatic disease. Soft tissues: Asymmetric enlargement of the left iliacus muscle. Asymmetric enlargement of the left psoas muscle. Several pathologically enlarged left iliac and left pelvic lymph nodes, largest definitively visualized lymph node measuring 2.6 cm. IMPRESSION: 1. Several acute fractures of the left iliac crest, presumed pathologic fractures given additional presence of sclerotic and lytic lesions throughout visualized bones. Findings concerning for osseous metastatic disease. 2. Asymmetric enlargement of the left psoas muscle, possibly pseudo enlargement due to adjacent enlarged left iliac and pelvic lymph nodes. Presence of enlarged lymph nodes is concerning for metastatic disease, potentially prostate origin. 3. Asymmetric enlargement of the left iliacus muscle is concerning for intramuscular hematoma in the setting of trauma. MICROBIOLOGY: Please see below. ASSESSMENT: This is a 69 YO M with history of Parkinson's disease and multiple myeloma who presents with worsening confusion, weakness, frequent falls found to have several acute pathologic fractures of his pelvis. He will be admitted for pain management. PLAN: 1. Pathologic hip fractures: likely secondary to worsened disease. Per EMR, this has been a known sequelae of disease -Patient will go for radiation treatment this AM -Pain management with IV Toradol, Morphine 2mg Q6H + Percocet. Can increase frequency if needed -Will hold off on PT/OT for now and immobilize pelvis -Bedrest for now 2. Parkinson's disease: autonomic insufficiency may be cause of frequent falls -Continue home Carbidopa/levodopa -Selegiline not on hospital formulary. Notified patient's that it will need to be brought to the hospital 3. 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 Eliceo Booth in [place] (Oncology), ongoing treatment with Daratumumab, Bortezomib, Decadron. Was last seen for treatment on 08/05/19. -Palliative care consult in place. Patient wishes to speak with his regarding plans at this point in time. Per my conversation with Dr. Lal and per Oncology notes, the patient is appropriate for hospice consult given poor prognosis and widely metastatic disease 4. Mood disorder: -Continue Trazodone, Sertraline 5. HTN: -Continue Chlorthalidone 6. Electrolyte abnormalities: -given 40MEQ K this AM DVT Ppx: SQH DISPO: pending clinical improvement Attending attestation: I evaluated and examined the patient in person; I discussed the care with Resident in detail and agree with the plan above. VS, I&O, 24H, Fishbone Vital Signs/I&O Vital Signs Date Time Temp Pulse Resp B/P (MAP) Pulse Ox O2 Delivery O2 Flow Rate FiO2 09/06/19 09:26 120/70 09/06/19 06:32 18 09/06/19 04:13 99.0 77 97 Room Air I&O- Last 24 Hours up to 6 AM 09/06/19 06:00 Intake Total 1660 ml Output Total 475 ml Balance 1185 ml Laboratory Data 24H LABS Laboratory Tests 2 09/06/19 05:43: Nucleated Red Blood Cells % (auto) 0.0, Anion Gap 5L, Glomerular Filtration Rate > 60.0, Calcium Level 7.9L, Total Bilirubin 0.9, Aspartate Amino Transf (AST/SGOT) 12, Alanine Aminotransferase (ALT/SGPT) 7L, Alkaline Phosphatase 80, Total Protein 6.9, Albumin 3.1L, Albumin/Globulin Ratio 0.8 CBC/BMP Laboratory Tests 09/06/19 05:43 GME ATTESTATION GME ATTESTATION My faculty preceptor for this patient encounter was physically present during the encounter and was fully available. All aspects of the patient interview, examination, medical decision making process, and medical care plan development were reviewed and approved by the faculty preceptor. The faculty preceptor is aware and concurs with the plan as stated in the body of this note and will attest to such by his/her cosignature. ASHLEY RODRIGES MD September 06, 2019 15:36 VAUGHN MCPHERSON MD September 08, 2019 19:52
[2019-09-06] MEDS: SINEMET**CR** 25/100 TABCR PO SCH (20:08)
[2019-09-06] MEDS: SENOKOT S TAB PO SCH (20:08)
[2019-09-06] MEDS: ACETAMINOPHEN TAB 650MG DOSE (2X325MG) PO PRN (20:08)
[2019-09-06] MEDS: RAMELTEON 8 MG TAB (ROZEREM) PO SCH (20:08)
[2019-09-06] MEDS: traZODone 50 MG TAB PO SCH (20:09)
[2019-09-06 22:00] VITALS: BP 109/70
[2019-09-07 02:00] VITALS: BP 113/52
[2019-09-07] MEDS: PERCOCET 5MG/325MG TAB PO PRN ×2 (04:57→10:44)
[2019-09-07 06:00] VITALS: BP 109/67
[2019-09-07] MEDS: SINEMET 25-100 MG TAB PO SCH ×5 (06:11→21:07)
[2019-09-07 06:52] LABS: HEMATOCRIT 37.3 % (42.0-52.0); HEMOGLOBIN 12.5 g/dl (13.5-17.5); MEAN CORPUSCULAR HEMOGLOBIN 31.5 pg (27.0-33.0); MEAN CORPUSCULAR HGB CONC 33.5 g/dl (32.0-36.5); PLATELET COUNT, AUTOMATED 159 10^3/uL (150-450); RED BLOOD COUNT 3.97 10^6/uL (4.30-6.10); WHITE BLOOD COUNT 7.8 10^3/uL (4.0-10.0)
[2019-09-07 07:13] LABS: ALT/SGPT 9 U/L (12-78); BILIRUBIN,TOTAL 0.9 MG/DL (0.2-1.0); BLOOD UREA NITROGEN 18 MG/DL (7-18); CALCIUM LEVEL 8.3 MG/DL (8.8-10.2); CARBON DIOXIDE LEVEL 30 MEQ/L (21-32); CHLORIDE LEVEL 101 MEQ/L (98-107); CREATININE FOR GFR 0.64 MG/DL (0.70-1.30); GLOMERULAR FILTRATION RATE > 60.0 (>49); GLUCOSE, FASTING 92 MG/DL (70-100); POTASSIUM SERUM 3.9 MEQ/L (3.5-5.1); SODIUM LEVEL 136 MEQ/L (136-145); TOTAL PROTEIN 6.8 GM/DL (6.4-8.2)
[2019-09-07] MEDS: MOM 30ML SUSPENSION UDC PO SCH (08:23)
[2019-09-07] MEDS: ASPIRIN 81 MG ENTERIC TAB PO SCH (08:23)
[2019-09-07] MEDS: DOCUSATE SODIUM 100MG CAPSULE PO SCH ×2 (08:23→21:02)
[2019-09-07] MEDS: ACYCLOVIR 200 MG CAPSULE PO SCH ×2 (08:23→21:01)
[2019-09-07] MEDS: LOSARTAN 50MG TABLET PO SCH (08:24)
[2019-09-07] MEDS: SERTRALINE HCL 50 MG TAB PO SCH (08:24)
[2019-09-07] MEDS: HEPARIN SOD (PORCINE) 5000UNITS/ML 1ML VIAL/SYRINGE SQ SCH ×2 (08:24→21:01)
[2019-09-07 11:40] VITALS: BP 138/79
--- NOTE | 2019-09-07 12:54 | IPNPDOC ---
Date Seen The patient was seen on 09/07/19. Progress Note SUBJECTIVE: The patient reportedly fell overnight after taking the bed alarm off and trying to get out of bed. Nursing overnight did not report any apparent injuries and patient only complains of the same pain in his hip as prior and some pain in his bottom. Otherwise, the patient is aware of the need to make plans moving forward regarding his care and having extra help at home knowing that his needs help taking care of him. He has been introduced to the idea of hospice and palliative care but has yet to talk to someone about it yet. OBJECTIVE PHYSICAL EXAMINATION: VITAL SIGNS: Please see below. GENERAL APPEARANCE: Laying in bed, appears very cachectic, no acute distress, calm, cooperative, very tremulous HEENT: EOMI, PERRLA, neck is supple with no thyromegaly or lymphadenopathy RESPIRATORY: Lungs are clear to auscultation bilaterally with no adventitious breath sounds appreciated CARDIOVASCULAR: no JVD, RRR, no murmurs/rubs/gallops, normal S1 and S2 ABDOMEN: +BS, soft, nontender to palpation in all four quadrants, no masses/organomegaly EXTREMITIES: no clubbing, cyanosis or edema noted MSK: Left hip tender to palpation, strength 0/5 due to pain; legs are of equal length NEUROLOGICAL: CN 2-12 intact, No obvious focal deficits, very tremulous PSYCHIATRIC: normal mood/affect Skin: No rashes or ulcers appreciated, warm and well-perfused LN: No significant cervical or inguinal lymphadenopathy LABORATORY DATA: See below. MICROBIOLOGY: Please see below. ASSESSMENT: This is a 69 YO M with history of Parkinson's disease and multiple myeloma who presents with worsening confusion, weakness, frequent falls found to have several acute pathologic fractures of his pelvis. He will be admitted for pain management. PLAN: 1. Pathologic hip fractures: likely secondary to worsened disease. Per EMR, this has been a known sequelae of disease -s/p radiation treatment yesterday -Pain management with IV Morphine 2mg Q6H + Percocet. Can increase frequency if needed -Will hold off on PT/OT for now and immobilize pelvis -Bedrest for now. Will speak to Dr. Lal on Monday regarding limitations for this patient 2. Parkinson's disease: autonomic insufficiency may be cause of frequent falls -Continue home Carbidopa/levodopa -Selegiline not on hospital formulary. Notified patient's that it will need to be brought to the hospital -Ativan PRN for anxiety 3. 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 Eliceo Booth in [place] (Oncology), ongoing treatment with Daratumumab, Bortezomib, Decadron. Was last seen for treatment on 08/05/19. -Palliative care consult in place. Patient wishes to speak with his regarding plans at this point in time. Per my conversation with Dr. Lal and per Oncology notes, the patient is appropriate for hospice consult given poor prognosis and widely metastatic disease 4. Mood disorder: -Continue Trazodone, Sertraline 5. HTN: -Continue Chlorthalidone 6. Electrolyte abnormalities: -resolved DVT Ppx: SQH DISPO: pending clinical improvement Attending attestation: I evaluated and examined the patient in person; I discussed the care with Resident in detail and agree with the plan above. VS, I&O, 24H, Fishbone Vital Signs/I&O Vital Signs Date Time Temp Pulse Resp B/P (MAP) Pulse Ox O2 Delivery O2 Flow Rate FiO2 09/07/19 11:50 16 09/07/19 11:40 97.3 84 138/79 (98) 97 Room Air I&O- Last 24 Hours up to 6 AM 09/07/19 05:59 Intake Total 900 ml Output Total 905 ml Balance -5 ml Laboratory Data 24H LABS Laboratory Tests 2 09/07/19 06:22: Nucleated Red Blood Cells % (auto) 0.0, Anion Gap 5L, Glomerular Filtration Rate > 60.0, Calcium Level 8.3L, Total Bilirubin 0.9, Aspartate Amino Transf (AST/SGOT) 10, Alanine Aminotransferase (ALT/SGPT) 9L, Alkaline Phosphatase 78, Total Protein 6.8, Albumin 3.0L, Albumin/Globulin Ratio 0.8 CBC/BMP Laboratory Tests 09/07/19 06:22 GME ATTESTATION GME ATTESTATION My faculty preceptor for this patient encounter was physically present during the encounter and was fully available. All aspects of the patient interview, examination, medical decision making process, and medical care plan development were reviewed and approved by the faculty preceptor. The faculty preceptor is aware and concurs with the plan as stated in the body of this note and will attest to such by his/her cosignature. ASHLEY RODRIGES MD September 07, 2019 12:54 VAUGHN MCPHERSON MD September 08, 2019 19:54
[2019-09-07 14:06] VITALS: BP 144/88
[2019-09-07 18:06] VITALS: BP 145/95
[2019-09-07 20:00] VITALS: BP 126/77
[2019-09-07] MEDS: traZODone 50 MG TAB PO SCH (21:01)
[2019-09-07] MEDS: SINEMET**CR** 25/100 TABCR PO SCH (21:01)
[2019-09-07] MEDS: RAMELTEON 8 MG TAB (ROZEREM) PO SCH (21:02)
[2019-09-07] MEDS: SENOKOT S TAB PO SCH (21:02)
[2019-09-07] MEDS: ACETAMINOPHEN TAB 650MG DOSE (2X325MG) PO PRN (21:02)
[2019-09-08 06:00] VITALS: BP 127/85
[2019-09-08] MEDS: SINEMET 25-100 MG TAB PO SCH ×5 (06:17→21:45)
[2019-09-08] MEDS: LORazepam 2 MG TAB PO PRN (06:17)
[2019-09-08 06:51] LABS: HEMATOCRIT 39.1 % (42.0-52.0); HEMOGLOBIN 13.3 g/dl (13.5-17.5); MEAN CORPUSCULAR HEMOGLOBIN 31.7 pg (27.0-33.0); MEAN CORPUSCULAR VOLUME 93.1 fl (80.0-96.0); PLATELET COUNT, AUTOMATED 174 10^3/uL (150-450)
[2019-09-08 07:18] LABS: ALBUMIN 3.3 GM/DL (3.2-5.2); ALT/SGPT 9 U/L (12-78); BLOOD UREA NITROGEN 18 MG/DL (7-18); CALCIUM LEVEL 8.4 MG/DL (8.8-10.2); CARBON DIOXIDE LEVEL 29 MEQ/L (21-32); CHLORIDE LEVEL 99 MEQ/L (98-107); CREATININE FOR GFR 0.65 MG/DL (0.70-1.30); GLOMERULAR FILTRATION RATE > 60.0 (>49); GLUCOSE, FASTING 92 MG/DL (70-100); POTASSIUM SERUM 3.7 MEQ/L (3.5-5.1); SODIUM LEVEL 136 MEQ/L (136-145); TOTAL PROTEIN 7.3 GM/DL (6.4-8.2)
[2019-09-08] MEDS: ACYCLOVIR 200 MG CAPSULE PO SCH ×2 (08:34→21:43)
[2019-09-08] MEDS: HEPARIN SOD (PORCINE) 5000UNITS/ML 1ML VIAL/SYRINGE SQ SCH ×2 (08:34→21:43)
[2019-09-08] MEDS: ASPIRIN 81 MG ENTERIC TAB PO SCH (08:34)
[2019-09-08] MEDS: MOM 30ML SUSPENSION UDC PO SCH (08:34)
[2019-09-08] MEDS: LOSARTAN 50MG TABLET PO SCH (08:35)
[2019-09-08] MEDS: SERTRALINE HCL 50 MG TAB PO SCH (08:35)
[2019-09-08] MEDS: DOCUSATE SODIUM 100MG CAPSULE PO SCH ×2 (08:35→21:43)
--- NOTE | 2019-09-08 11:52 | IPNPDOC ---
Date Seen The patient was seen on 09/08/19. Progress Note SUBJECTIVE: 69-year-old male with past medical history of multiple myeloma, hypertension and Parkinson's disease is admitted for pathologic fractures of the iliac crest secondary to metastatic disease. Patient has been treated conservatively, also undergoing radiation therapy as per radiation oncology. Patient is cared for by his , but given his worsening clinical status, it is getting difficult for his to care for him at home. Patient is requesting placement, will be arranged by criminal justice social worker tomorrow. He has no complaints at this time. 10 point review of systems negative except for above PHYSICAL EXAMINATION: VITAL SIGNS: Please see below. GENERAL: No distress HEENT: Normocephalic, atraumatic, moist mucous membranes NECK: Supple CARDIOVASCULAR EXAMINATION: S1, S2, no murmurs RESPIRATORY EXAMINATION: Diminished in the bases, no wheezing ABDOMINAL EXAMINATION: Soft, nontender, nondistended, positive bowel sounds EXTREMITIES: Range of motion limited due to pain SKIN: No rash NEUROLOGICAL EXAMINATION: Alert and oriented 3, resting tremors appreciated PSYCHIATRIC EXAMINATION: Calm and cooperative LABORATORY DATA, IMAGING STUDIES, MICROBIOLOGY: Please see below. ASSESSMENT AND PLAN: 69-year-old male with past medical history of multiple myeloma is admitted for multiple pathologic fractures of iliac crest. PROBLEMS: 1. Pathologic fractures of iliac crest: Secondary to metastatic disease, supportive care, pain control, radiation and activity as per radiation oncology. 2. Multiple myeloma: Status post chemoradiation, poor prognosis, palliative care consulted, patient requesting placement, criminal justice social worker to arrange, will discuss goals of care with patient and . Continue Decadron and acyclovir. 3. Hypertension: Continue losartan and chlorthalidone. 4. Parkinson's: Continue Sinemet DVT prophylaxis: Heparin subcutaneous VS, I&O, 24H, Fishbone Vital Signs/I&O Vital Signs Date Time Temp Pulse Resp B/P (MAP) Pulse Ox O2 Delivery O2 Flow Rate FiO2 09/08/19 08:35 127/85 09/08/19 06:00 97.5 87 20 97 Room Air I&O- Last 24 Hours up to 6 AM 09/08/19 05:59 Intake Total 1080 ml Output Total 171 ml Balance 909 ml Laboratory Data 24H LABS Laboratory Tests 2 09/08/19 06:26: Nucleated Red Blood Cells % (auto) 0.0, Anion Gap 8, Glomerular Filtration Rate > 60.0, Calcium Level 8.4L, Total Bilirubin 1.0, Aspartate Amino Transf (AST/SGOT) 13, Alanine Aminotransferase (ALT/SGPT) 9L, Alkaline Phosphatase 85, Total Protein 7.3, Albumin 3.3, Albumin/Globulin Ratio 0.8 CBC/BMP Laboratory Tests 09/08/19 06:26 VAUGHN MCPHERSON MD September 08, 2019 11:52
[2019-09-08 14:15] VITALS: BP 111/68
[2019-09-08] MEDS: LORazepam 0.5 MG TAB PO PRN (16:33)
[2019-09-08 20:14] VITALS: BP 139/85
[2019-09-08] MEDS: traZODone 50 MG TAB PO SCH (21:43)
[2019-09-08] MEDS: RAMELTEON 8 MG TAB (ROZEREM) PO SCH (21:43)
[2019-09-08] MEDS: SENOKOT S TAB PO SCH (21:43)
[2019-09-08] MEDS: PERCOCET 5MG/325MG TAB PO PRN (21:44)
[2019-09-08] MEDS: SINEMET**CR** 25/100 TABCR PO SCH (21:44)
[2019-09-09] MEDS: LORazepam 0.5 MG TAB PO PRN ×2 (06:55→18:26)
[2019-09-09] MEDS: SINEMET 25-100 MG TAB PO SCH ×5 (06:55→20:23)
[2019-09-09 06:57] VITALS: BP 123/72
[2019-09-09] MEDS: ACYCLOVIR 200 MG CAPSULE PO SCH ×2 (09:05→20:22)
[2019-09-09] MEDS: CHLORTHALIDONE 12.5MG PER 1/2 TABLET PO SCH (09:05)
[2019-09-09] MEDS: MOM 30ML SUSPENSION UDC PO SCH (09:05)
[2019-09-09] MEDS: DOCUSATE SODIUM 100MG CAPSULE PO SCH ×2 (09:05→20:23)
[2019-09-09] MEDS: SERTRALINE HCL 50 MG TAB PO SCH (09:05)
[2019-09-09] MEDS: LOSARTAN 50MG TABLET PO SCH (09:06)
[2019-09-09] MEDS: HEPARIN SOD (PORCINE) 5000UNITS/ML 1ML VIAL/SYRINGE SQ SCH ×2 (09:06→20:23)
[2019-09-09] MEDS: ASPIRIN 81 MG ENTERIC TAB PO SCH (09:06)
[2019-09-09 10:19] VITALS: BP 126/79
[2019-09-09 14:23] VITALS: BP 127/82
--- NOTE | 2019-09-09 15:20 | IPNPDOC ---
Date Seen The patient was seen on 09/09/19. Progress Note SUBJECTIVE: Patient and considering hospice at this time, preferably hospice house. Case discussed in detail and all questions answered. Patient went to radiation this morning. No acute events reported overnight. OBJECTIVE PHYSICAL EXAMINATION: VITAL SIGNS: Please see below. GENERAL APPEARANCE: Laying in bed, appears very cachectic, no acute distress, calm, cooperative, very tremulous HEENT: EOMI, PERRLA, neck is supple with no thyromegaly or lymphadenopathy RESPIRATORY: Lungs are clear to auscultation bilaterally with no adventitious breath sounds appreciated CARDIOVASCULAR: no JVD, RRR, no murmurs/rubs/gallops, normal S1 and S2 ABDOMEN: +BS, soft, nontender to palpation in all four quadrants, no masses/organomegaly EXTREMITIES: no clubbing, cyanosis or edema noted MSK: Left hip tender to palpation, strength 0/5 due to pain; legs are of equal length NEUROLOGICAL: CN 2-12 intact, No obvious focal deficits, very tremulous PSYCHIATRIC: normal mood/affect Skin: No rashes or ulcers appreciated, warm and well-perfused LN: No significant cervical or inguinal lymphadenopathy LABORATORY DATA: See below. MICROBIOLOGY: Please see below. ASSESSMENT: This is a 69 YO M with history of Parkinson's disease and multiple myeloma who presents with worsening confusion, weakness, frequent falls found to have several acute pathologic fractures of his pelvis. He will be admitted for pain management. PLAN: 1. Pathologic hip fractures: likely secondary to worsened disease. Per EMR, this has been a known sequelae of disease -s/p radiation treatment yesterday -Pain management with IV Morphine 2mg Q6H + Percocet. Can increase frequency if needed -Will hold off on PT/OT for now and immobilize pelvis -Bedrest for now. Will speak to Dr. Lal on Monday regarding limitations for this patient -Hospice consult in place 2. Parkinson's disease: autonomic insufficiency may be cause of frequent falls -Continue home Carbidopa/levodopa -Selegiline not on hospital formulary. Notified patient's that it will need to be brought to the hospital -Ativan PRN for anxiety 3. 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 Eliceo Booth in [place] (Oncology), ongoing treatment with Daratumumab, Bortezomib, Decadron. Was last seen for treatment on 08/05/19. -Palliative care consult in place. Patient wishes to speak with his regarding plans at this point in time. Per my conversation with Dr. Lal and per Oncology notes, the patient is appropriate for hospice consult given poor prognosis and widely metastatic disease 4. Mood disorder: -Continue Trazodone, Sertraline 5. HTN: -Continue Chlorthalidone 6. Electrolyte abnormalities: -resolved DVT Ppx: SQH DISPO: pending hospice discussion Attending attestation: I evaluated and examined the patient in person; I discussed the care with Resident in detail and agree with the plan above. VS, I&O, 24H, Fishbone Vital Signs/I&O Vital Signs Date Time Temp Pulse Resp B/P (MAP) Pulse Ox O2 Delivery O2 Flow Rate FiO2 09/09/19 14:23 97.8 97 19 127/82 (97) 95 Room Air I&O- Last 24 Hours up to 6 AM 09/09/19 05:59 Intake Total 1390 ml Output Total 2 ml Balance 1388 ml GME ATTESTATION GME ATTESTATION My faculty preceptor for this patient encounter was physically present during the encounter and was fully available. All aspects of the patient interview, examination, medical decision making process, and medical care plan development were reviewed and approved by the faculty preceptor. The faculty preceptor is aware and concurs with the plan as stated in the body of this note and will attest to such by his/her cosignature. ASHLEY RODRIGES MD September 09, 2019 15:20 VAUGHN MCPHERSON MD September 16, 2019 21:32
[2019-09-09] MEDS: FLEET ENEMA PR PRN (16:43)
[2019-09-09] MEDS: MIRALAX *UNIT DOSE* 17GM PACKET PO PRN (16:43)
[2019-09-09 17:51] VITALS: BP 130/82
[2019-09-09] MEDS: PERCOCET 5MG/325MG TAB PO PRN (18:26)
[2019-09-09 19:29] VITALS: BP 130/84
[2019-09-09] MEDS: ACETAMINOPHEN TAB 650MG DOSE (2X325MG) PO PRN (20:22)
[2019-09-09] MEDS: traZODone 50 MG TAB PO SCH (20:22)
[2019-09-09] MEDS: SENOKOT S TAB PO SCH (20:23)
[2019-09-09] MEDS: RAMELTEON 8 MG TAB (ROZEREM) PO SCH (20:23)
[2019-09-09] MEDS: SINEMET**CR** 25/100 TABCR PO SCH (20:23)
[2019-09-10 02:00] VITALS: BP 109/59
[2019-09-10 05:14] VITALS: BP 112/50
[2019-09-10] MEDS: SINEMET 25-100 MG TAB PO SCH ×5 (06:41→21:25)
[2019-09-10] MEDS: LORazepam 0.5 MG TAB PO PRN (06:41)
[2019-09-10] MEDS: PERCOCET 5MG/325MG TAB PO PRN ×4 (06:41→22:43)
[2019-09-10] MEDS: ASPIRIN 81 MG ENTERIC TAB PO SCH (08:41)
[2019-09-10] MEDS: MOM 30ML SUSPENSION UDC PO SCH (08:41)
[2019-09-10] MEDS: SERTRALINE HCL 50 MG TAB PO SCH (08:41)
[2019-09-10] MEDS: DOCUSATE SODIUM 100MG CAPSULE PO SCH ×2 (08:41→21:24)
[2019-09-10] MEDS: ACYCLOVIR 200 MG CAPSULE PO SCH (08:41)
[2019-09-10] MEDS: HEPARIN SOD (PORCINE) 5000UNITS/ML 1ML VIAL/SYRINGE SQ SCH (08:42)
[2019-09-10 08:56] VITALS: BP 98/55
[2019-09-10] MEDS: LOSARTAN 50MG TABLET PO SCH (08:56)
[2019-09-10 09:00] VITALS: BP 98/55
[2019-09-10] MEDS: LORazepam 1 MG TAB PO PRN ×2 (13:00→18:56)
--- NOTE | 2019-09-10 15:45 | IPNPDOC ---
Date Seen The patient was seen on 09/10/19. Progress Note I had a prolonged discussion with patient and , all questions and concerns were answered after which they have collectively decided to withdraw all care and make patient comfort measures only. Hospice has been consulted, plan for discharge to hospice house when a bed is available. APPLE PEELER OPERATOR orders placed. VS, I&O, 24H, Fishbone Vital Signs/I&O Vital Signs Date Time Temp Pulse Resp B/P (MAP) Pulse Ox O2 Delivery O2 Flow Rate FiO2 09/10/19 13:30 17 09/10/19 09:00 98/55 (69) 09/10/19 05:14 85 94 Room Air 09/10/19 02:00 97.7 I&O- Last 24 Hours up to 6 AM 09/10/19 06:00 Intake Total 1360 ml Output Total 542 ml Balance 818 ml VAUGHN MCPHERSON MD September 10, 2019 15:44
[2019-09-10] MEDS: RAMELTEON 8 MG TAB (ROZEREM) PO SCH (21:24)
[2019-09-10] MEDS: SINEMET**CR** 25/100 TABCR PO SCH (21:25)
[2019-09-10] MEDS: SENOKOT S TAB PO SCH (21:25)
[2019-09-10] MEDS: ACETAMINOPHEN TAB 650MG DOSE (2X325MG) PO PRN (21:25)
[2019-09-11] MEDS: SINEMET 25-100 MG TAB PO SCH ×2 (06:12→11:29)
[2019-09-11] MEDS: PERCOCET 5MG/325MG TAB PO PRN ×2 (06:13→11:07)
[2019-09-11] MEDS: MOM 30ML SUSPENSION UDC PO SCH (08:20)
[2019-09-11] MEDS: DOCUSATE SODIUM 100MG CAPSULE PO SCH (08:20)
[2019-09-11] MEDS: SERTRALINE HCL 50 MG TAB PO SCH (08:20)
[2019-09-11] MEDS ORDERED: LORA0.5T5 PO (10:44)
[2019-09-11] MEDS ORDERED: MORP20SO3 PO (10:44)
[2019-09-11] MEDS ORDERED: HYOS125TA PO (10:44)
--- NOTE | 2019-09-11 14:10 | DS.PDOC ---
Discharge Summary General Date of Admission September 04, 2019 at 17:55 Date of Discharge 09/11/2019 Attending Physician: VAUGHN MCPHERSON MD Discharge Summary PROCEDURES PERFORMED DURING STAY: None. ADMITTING DIAGNOSES: 1. Fracture of left iliac crest. DISCHARGE DIAGNOSES: 1. Fracture of left iliac crest. COMPLICATIONS/CHIEF COMPLAINT: Fracture Of L Iliac Crest, Uncontrolled Weakness. HISTORY OF PRESENT ILLNESS: 69-year-old male with past medical history of multiple myeloma was admitted for pathologic fracture of left iliac crest. He was treated with supportive care, evaluated by radiation oncology. Given patient's multiple medical comorbidities and worsening dementia, he was made comfort measures only after a prolonged discussion with patient and . He was by hospice care and will be transferred to hospice as later today. HOSPITAL COURSE: As above. DISCHARGE MEDICATIONS: Please see below. ALLERGIES: Please see below. PHYSICAL EXAMINATION ON DISCHARGE: VITAL SIGNS: Please see below. An extensive physical exam was not performed given the circumstances LABORATORY DATA: Please see below. ACTIVITY: As tolerated. DIET: As tolerated DISCHARGE PLAN: Follow with hospice care at hospice house [facility] DISCHARGE INSTRUCTIONS: 1. As above. DISCHARGE CONDITION: Stable. TIME SPENT ON DISCHARGE: Greater than 20 minutes. Vital Signs/I&Os Vital Signs Date Time Temp Pulse Resp B/P (MAP) Pulse Ox O2 Delivery O2 Flow Rate FiO2 09/11/19 11:37 18 09/11/19 06:00 99.0 09/10/19 09:00 98/55 (69) 09/10/19 05:14 85 94 Room Air I&O- Last 24 Hours up to 6 AM 09/11/19 06:00 Intake Total 1650 ml Output Total 1050 ml Balance 600 ml Discharge Medications Scheduled PRN Acetaminophen (Acetaminophen) 500 Mg Tab, 500 MG PO Q6H PRN for PAIN, (Reported) Hyoscyamine Sulfate (Hyoscyamine Sulfate) 0.125 Mg Tab.subl, 0.125 MG PO Q4HP PRN for TERMINAL SECRETIONS Use sublingually if unable to swallow Lorazepam (Lorazepam) 0.5 Mg Tablet, 0.5 MG PO Q4HP PRN for ANXIETY/AGITATION Use sublingually if unable to swallow Morphine Sulfate (Morphine Sulfate) 100 Mg/5 Ml Solution, 0.25-1 ML PO Q2H PRN for PAIN OR DYSPNEA Use sublingually if unable to swallow Allergies Coded Allergies: diphenhydramine (Verified Adverse Reaction, Unknown, EXTREMELY JITTERY, 09/04/19) VAUGHN MCPHERSON MD September 11, 2019 14:10
== END 2019-09-11 11:45 | disposition hospice, inpatient (51) | DRG 841 ==
LOC: EDBD 14:26 → M ED 14:26 → M ED INP 17:55 → ENRESERV 19:29 → M MS5PR 20:05
PROVIDERS: ADMIT Internal Medicine; ATTEND Internal Medicine
DX: C90.00 Multiple myeloma not having achieved remission (principal); M84.454A Pathological fracture, pelvis, initial encounter for fracture; C79.9 Secondary malignant neoplasm of unspecified site; G20 Parkinson's disease; I10 Essential (primary) hypertension; E87.6 Hypokalemia; F34.1 Dysthymic disorder; G25.81 Restless legs syndrome; Z79.899 Other long term (current) drug therapy; Z88.8 Allergy status to other drugs, medicaments and biological substances; E53.8 Deficiency of other specified B group vitamins; R29.6 Repeated falls; Z79.82 Long term (current) use of aspirin

== ENCOUNTER 2019-09-09 09:15 | Outpatient (RCR) | payer MEDICARE ==
--- NOTE | 2019-09-03 10:58 | RADONC ---
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 He reports no improvement in his pelvic pain. REVIEW OF SYSTEMS: The patient's review of systems is otherwise noncontributory. He does have physical limitations and is using a cane secondary to his hip pain. Denies nausea, vomiting, fevers, chills, night sweats, diplopia, headaches, anxiety or depression, anorexia, weight loss, visual disturbances, chest pain, urinary or bowel difficulties, bone pain, or neurological problems. PHYSICAL EXAMINATION: The patient's skin is in good condition with no evidence of radiation change present. There is no moist or dry desquamation. The remainder of his physical exam remains unchanged. 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
[~2019-09-09 09:15] MED LIST changes: +AMIT150T PO; -ASPI-546 PO; +ASPI1TAB15 PO; -HYDR-3490 PO; +HYDR25TAB PO; +LOSA50TA88 PO; +MELA10CA PO; +PHILCAP4 PO
--- NOTE | 2019-09-11 07:42 | RADONC ---
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 He continues to be confused and is an inpatient at this time. He thought he was coming here for chemotherapy. I have difficulty pinning him down to an answer on whether or not we are improving his ilium pain. He is asking if he is going to a alf versus palliative care versus chemotherapy which he thinks this is. PHYSICAL EXAMINATION: The patient's skin is in good condition with no evidence of radiation change present. Physical exam is otherwise unchanged. The patient is presenting on a stretcher. Radiation is tolerated well and will continue as scheduled. Final decisions need to be undertaken as to whether or not systemic therapy will continue or he will go onto hospice or hospice with inpatient nursing care. In the meantime, we will continue with his palliative radiation.
[2019-09-11] MEDS ORDERED: HYOS125TA PO (10:44)
[2019-09-11] MEDS ORDERED: MORP20SO3 PO (10:44)
[2019-09-11] MEDS ORDERED: LORA0.5T5 PO (10:44)
--- NOTE | 2019-09-12 15:52 | RADONC ---
RADIATION ONCOLOGY TREATMENT SUMMARY: DATE: 09/09/2019 CHART NUMBER: [id number] DIAGNOSIS: Multiple myeloma. ECOG PERFORMANCE STATUS: 4 Dr. Rincon is a very pleasant 69-year-old white male with a diagnosis of multiple myeloma who presented to us for consideration of palliative radiation therapy to his left ileum. We treated the patient to his left ileum for a total dose of 1750 cGy delivered in seven fractions 250 cGy each over 11 elapsed days from 08/29/2019 through 09/09/2019. The patient's left ileum was treated on linear accelerator utilizing a 3D conformal technique with a combination of 10 MV and 6MV photons. Unfortunately, Dr. Rincon's condition continued to deteriorate throughout the course of his treatment. He became increasingly confused and lethargic. We received a phone call from the treatment floor, the patient has signed off on comfort care only. He has been therefore discharged from treatment as well as our followup. I am removing him, at this time, from our followup scheduled. If the patient's condition should change and he should wish to resume radiation or be re-evaluated, we are available at any time and more than glad to see. I hope we have been to some benefit to this unfortunate gentleman. cc: MD Eliceo Cruz MD Frank Rhode, MD
== END 2019-09-22 ==
LOC: M ONCR 09:15
PROVIDERS: ATTEND Radiology Radiation Oncology
DX: C90.00 Multiple myeloma not having achieved remission (principal)